=== PATIENT | male | born 1940 | race Caucasian/White ===

== ENCOUNTER 2016-12-23 11:28 | Observation (INO) | payer OTHER ==
[~2016-12-23] VITALS: Ht 175.3 cm; Wt 87.4 kg
[~2016-12-23 11:28] MED LIST: ASPI81TA28 PO; CYAN10005 PO; DOXY-300 PO; FERR325T51 PO; FOLI800T PO; FURO-85 PO; LEVO100T7 PO; LIDO2SOL17 PO; PRED10TA PO; SIMV10TA2 PO
--- NOTE | 2016-12-23 11:50 | EMERGENCY ROOM VISIT NOTE ---
History Report prepared by Sonali: Nellie Johnston Under the Supervision of: Dr. Alisia Lazaro M.D. First contact with patient: 11:14 Stated Complaint: CHEST PAIN History of Present Illness The patient is a 76 year old male who presents to the Emergency Room with complaints of resolved chest pain starting about an hour ago. He reports a sudden onset of severe pain. He also had heart palpitations, severe dizziness, weakness, and diaphoresis. He received Aspirin en route to the Emergency Room with relief. He currently reports worsening pain with palpation but otherwise denies any chest pain. He sometimes has chest pain when he does even a small amount of exertion. He has had cold-like symptoms for the past 3 days. He has been having chest pain with coughing. He also reports sinus pressure. He notes a loss of appetite and a reduced fluid intake. He currently denies shortness of breath, abdominal pain, or any other complaints. He denies any history of myocardial infarction. Source of History: patient Onset: about an hour ago Position: chest Symptom Intensity: severe Timing: resolved Modifying Factors (Worsening): other (palpation) Associated Symptoms: + diaphoresis, + weakness, No SOB, No abdominal pain Review of Systems See HPI for pertinent positives & negatives. A total of 10 systems reviewed and were otherwise negative. Past Medical & Surgical Medical Problems: (1) Aortic stenosis (2) Chest pain (3) CKD (chronic kidney disease) stage 3, GFR 30-59 ml/min (4) Dyslipidemia (5) HTN (hypertension) (6) Hx of malignant neoplasm of prostate (7) Hypothyroidism (8) Metastatic renal cell carcinoma (9) Renal cell carcinoma Surgical Problems: (1) H/O partial nephrectomy (2) H/O transurethral resection of prostate (3) History of nephrectomy Family History FH: cancer (father) Hypertension Social History Smoking Status: Never Smoker Alcohol Use: none Drug Use: none Marital Status: Housing Status: lives with family Occupation Status: retired Current/Historical Medications Scheduled Aspirin (Aspirin Ec), 81 MG PO DAILY Cyanocobalamin (Vitamin B-12), 1,000 MCG PO DAILY Ferrous Fumarate (Iron), 65 MG PO DAILY Folic Acid (Folic Acid), 800 MCG PO DAILY Furosemide (Lasix), 20 MG PO DAILY Levothyroxine Sodium (Levothyroxine Sodium), 100 MCG PO DAILY Prednisone Tab (Prednisone), 10 MG PO DAILY Simvastatin (Zocor), 10 MG PO QPM Sunitinib Malate (Sutent), 25 MG PO DAILY Allergies Coded Allergies: No Known Allergies (Unverified , 03/15/16) Physical Exam Vital Signs Date Time Temp Pulse Resp B/P Pulse Ox O2 Delivery O2 Flow Rate FiO2 12/23/16 14:22 37.0 89 14 116/82 95 Room Air 12/23/16 13:37 90 12/23/16 12:28 91 18 110/75 12/23/16 12:23 94 20 93 12/23/16 12:18 91 21 94 12/23/16 12:13 95 19 92 12/23/16 12:03 95 17 94 12/23/16 11:58 102 18 113/78 12/23/16 11:53 97 18 93 12/23/16 11:48 98 21 93 12/23/16 11:43 102 19 95 12/23/16 11:38 99 15 93 12/23/16 11:34 99 12/23/16 11:33 103 18 95 12/23/16 11:31 145/85 12/23/16 11:30 37.0 101 18 145/85 98 Room Air 12/23/16 11:30 96 Room Air 12/23/16 11:30 Room Air Physical Exam CONSTITUTIONAL: Mild distress HEENT: No icterus, moist mucous membranes NECK: No meningismus, trachea is midline. CARDIOVASCULAR: Regular rate, normal perfusion RESPIRATORY: Unlabored breathing. Clear to auscultation. GASTROINTESTINAL: Non-tender GENITOURINARY: No flank tenderness MUSCULOSKELETAL: Full range of motion NEUROLOGIC: No acute gross focal deficits. PSYCHIATRIC: Normal affect SKIN: Normal for ethnicity. Medical Decision & Procedures ER Provider Diagnostic Interpretation: X-ray results as stated below per interpretation by me and the radiologist. CHEST ONE VIEW PORTABLE CLINICAL HISTORY: Chest pain. COMPARISON STUDY: Chest radiograph May 20, 2016 per FINDINGS: Lung volumes are normal. There is no pneumothorax or pleural effusion. No consolidation is identified. There is no evidence of pulmonary edema. There is moderate enlargement of the cardiac silhouette. IMPRESSION: 1. No acute cardiopulmonary findings. 2. Moderate enlargement of the cardiac silhouette. Electronically signed by: Devin Crandall M.D. 12/23/2016 11:57 AM Dictated Date/Time: 12/23/2016 11:55 AM Laboratory Results 12/23/16 11:00 Red Blood Count 4.60, Mean Corpuscular Volume 96.3, Mean Corpuscular Hemoglobin 32.4, Mean Corpuscular Hemoglobin Concent 33.6, Mean Platelet Volume 8.9, Neutrophils (%) (Auto) 72.8, Lymphocytes (%) (Auto) 16.5, Monocytes (%) (Auto) 9.6, Eosinophils (%) (Auto) 0.5, Basophils (%) (Auto) 0.2, Neutrophils # (Auto) 9.94, Lymphocytes # (Auto) 2.25, Monocytes # (Auto) 1.31, Eosinophils # (Auto) 0.07, Basophils # (Auto) 0.03 12/23/16 11:04 Test 12/23/16 11:00 12/23/16 11:04 12/23/16 14:14 White Blood Count 13.66 K/uL (4.8-10.8) Red Blood Count 4.60 M/uL (4.7-6.1) Hemoglobin 14.9 g/dL (14.0-18.0) Hematocrit 44.3 % (42-52) Mean Corpuscular Volume 96.3 fL (80-100) Mean Corpuscular Hemoglobin 32.4 pg (25-34) Mean Corpuscular Hemoglobin Concent 33.6 g/dl (32-36) Platelet Count 233 K/uL (130-400) Mean Platelet Volume 8.9 fL (7.4-10.4) Neutrophils (%) (Auto) 72.8 % Lymphocytes (%) (Auto) 16.5 % Monocytes (%) (Auto) 9.6 % Eosinophils (%) (Auto) 0.5 % Basophils (%) (Auto) 0.2 % Neutrophils # (Auto) 9.94 K/uL (1.4-6.5) Lymphocytes # (Auto) 2.25 K/uL (1.2-3.4) Monocytes # (Auto) 1.31 K/uL (0.11-0.59) Eosinophils # (Auto) 0.07 K/uL (0-0.5) Basophils # (Auto) 0.03 K/uL (0-0.2) RDW Standard Deviation 61.0 fL (36.4-46.3) RDW Coefficient of Variation 17.2 % (11.5-14.5) Immature Granulocyte % (Auto) 0.4 % Immature Granulocyte # (Auto) 0.06 K/uL (0.00-0.02) Prothrombin Time 10.0 SECONDS (9.0-12.0) Prothromb Time International Ratio 0.9 (0.9-1.1) Activated Partial Thromboplast Time 24.8 SECONDS (21.0-31.0) Partial Thromboplastin Ratio 1.0 Anion Gap 14.0 mmol/L (3-11) Est Creatinine Clear Calc Drug Dose 33.6 ml/min Estimated GFR () 36.0 Estimated GFR (Non- 31.0 BUN/Creatinine Ratio 11.3 (10-20) Calcium Level 9.4 mg/dl (8.5-10.1) Total Bilirubin 1.0 mg/dl (0.2-1) Aspartate Amino Transf (AST/SGOT) 22 U/L (15-37) Alanine Aminotransferase (ALT/SGPT) 24 U/L (12-78) Alkaline Phosphatase 73 U/L (45-117) Total Protein 6.9 gm/dl (6.4-8.2) Albumin 3.4 gm/dl (3.4-5.0) Globulin 3.5 gm/dl (2.5-4.0) Albumin/Globulin Ratio 1.0 (0.9-2) Chemistry Specimen Hemolysis Bedside Troponin I 0.020 ng/ml (0-0.045) Labs reviewed by ED physician. ECG Indication: chest pain Rate (beats per minute): 93 Rhythm: normal sinus Findings: no ectopy, other (Concerning for possible STEMI) Comparison ECG Date: May 22, 2016 Change: In-hospital EKG showed improving ST segments with prominent T waves noted. Compared to previous en route EKG. ED Course 1110: I discussed the patient's case with Dr. Song, outboard motor inspector with [facility]. 1114: Past medical records reviewed. The patient was evaluated in room B01. A complete history and physical examination was performed. 1129: Dr. Song is evaluating the patient at bedside. 1336: Upon reexamination the patient is resting comfortably. I discussed results and treatment plan with the patient. He verbalizes agreement and understanding. I spoke with Razia Robb PA-C from the [facility] Service. The patient will be evaluated for further management. Medical Decision Differential diagnosis includes but is not limited to aortic stenosis, coronary artery disease including ACS. I received medic call on this patient for Chief Complaint: Chest pain with EKG concerning for STEMI. h/o aortic stenosis. ROS (+) dizziness and weakness this morning. All chest pain and dizziness has resolved. Previous EKG obtained prior to patient's arrival and Dr. Song (interventional cardiology) kindly came to see patient on ED arrival. Repeat EKG demonstrated some improvement in St-t segments compared to May 2016 and patient remained asymptomatic with normal poc troponin. Second troponin also normal and patient remained hemodynamically stable throughout ED course. Admission arranged with [facility]. Consults Time Called: [id number] Consulting Physician: Dr. Song, outboard motor inspector with [facility] Returned Call: [phone] I discussed the patient's case with Dr. Song, outboard motor inspector with [facility]. Additional Consults: Time Called: 1334 Consulted Physician: Razia Robb PA-C from the [facility] Service Returned Call: [phone] Additional Comments: I spoke with Razia Robb PA-C from the [facility]. Impression Primary Impression: Precordial chest pain Critical Care I have personally spent greater than 30 minutes of critical care time in the direct management of this patient. This includes bedside care, interpretation of diagnostic studies, and testing, discussion with consultants, patient, and family members, and other required patient management activities. This 30 minutes is in excess of all separately billable procedures. Scribe Attestation The scribe's documentation has been prepared under my direction and personally reviewed by me in its entirety. I confirm that the note above accurately reflects all work, treatment, procedures, and medical decision making performed by me. Departure Information Dispostion Being Evaluated By Hospitalist Referrals Jay Muhammad D.O. (PCP)
[2016-12-23] MEDS ORDERED: PRED10TA PO (11:52)
[2016-12-23] MEDS ORDERED: SUNI25CA PO (11:52)
[2016-12-23] MEDS ORDERED: FERR18TA2 PO (11:52)
[2016-12-23 11:54] LABS: BASO % 0.2 %; BASO ABS # 0.03 K/uL (0-0.2); COMPLETE YES; EOS % 0.5 %; HEMATOCRIT 44.3 % (42-52); IG% 0.4 %; LYMPH % 16.5 %; LYMPH ABS # 2.25 K/uL (1.2-3.4); MEAN CELL VOLUME 96.3 fL (80-100); MEAN CORPUSCULAR HEMOGLOBIN 32.4 pg (25-34); MEAN CORPUSCULAR HGB CONC 33.6 g/dl (32-36); MEAN PLATELET VOLUME 8.9 fL (7.4-10.4); MONO % 9.6 %; NEUT % 72.8 %; PLATELET COUNT 233 K/uL (130-400); WHITE BLOOD COUNT 13.66 K/uL (4.8-10.8)
--- NOTE | 2016-12-23 11:58 | DIAGNOSTIC IMAGING REPORT ---
CHEST ONE VIEW PORTABLE CLINICAL HISTORY: Chest pain. COMPARISON STUDY: Chest radiograph May 20, 2016 per FINDINGS: Lung volumes are normal. There is no pneumothorax or pleural effusion. No consolidation is identified. There is no evidence of pulmonary edema. There is moderate enlargement of the cardiac silhouette. IMPRESSION: 1. No acute cardiopulmonary findings. 2. Moderate enlargement of the cardiac silhouette. Electronically signed by: Devin Crandall M.D. 12/23/2016 11:57 AM Dictated Date/Time: 12/23/2016 11:55 AM
[2016-12-23 12:09] LABS: INR 0.9 (0.9-1.1)
[2016-12-23 12:16] LABS: BUN/CREATININE RATIO 11.3 (10-20); CALCIUM 9.4 mg/dl (8.5-10.1); POTASSIUM 3.7 mmol/L (3.5-5.1)
[2016-12-23] MEDS ORDERED: ONDANSETRON INJ 2 MG/ML 2 ML VIAL IV PRN (14:15)
[2016-12-23] MEDS ORDERED: ACETAMINOPHEN 325 MG TAB PO PRN (14:15)
[2016-12-23] MEDS ORDERED: NITROGLYCERIN 0.4 MG SL PER TAB CHARGE SL PRN (14:15)
[2016-12-23 14:22] VITALS: BP 116/82; PULSE 89; TEMP 37; O2SAT 95; Ht 175.3 cm; Wt 87.4 kg
--- NOTE | 2016-12-23 14:36 | History and Physical ---
History & Physical Date & Time of Service: Dec 23, 2016 at 14:17 Chief Complaint: Chest Pain Primary Care Physician: Polina Aguilera D.O. History of Present Illness Source: patient, family, clinic records, hospital records Patient seen and examined. 76 year old male with PMHx of Severe Aortic Stenosis , CKD stage 3, Renal CA with mets to brain, adrenal glands and lungs, HTN, and hypothyroidism presents to the ED complaining of epigastric pain prior to arrival. Patient reports that he has had sinus congestion for several days. Today he took robitussin DM to help with the congestion he states about an hour after he took this he became extremely dizzy and lightheaded. Family reports he was very pale and diaphoretic. He had associated sharp epigastric abdominal pain that he rated as a 6/10, he states the pain is more epigastric than in his chest, but has had chest pain with exertional recently. Patient reports that he also felt like his heart was fluttering and beating irregularly. He also reports diarrhea x 2 episodes. He states that the total episode lasted around 45 minutes, and was resolved by the time he arrived at the ED. He states he currently feels at baseline. Patient reports that occasionally gets a chest tightness when carrying heavy objects, like the groceries from the car to the house. He denies fevers, chills, cough, SOB, nausea, vomiting, dysuria, calf pain and edema. Enroute to the hospital there was question of whether EKG showed ST segment elevation, on arrival, repeat EKG was without ST elevation, troponin was negative and patient was symptom free. Dr. Song of interventional cardiology was consulted and did not think patient needed emergency cath. Patient will be observed for further workup and treatment. Past Medical/Surgical History Medical Problems: (1) Aortic stenosis Status: Chronic (2) Brain metastasis Permanent Comment: s/p resection Status: Chronic (3) CKD (chronic kidney disease) stage 3, GFR 30-59 ml/min Status: Chronic (4) Dyslipidemia Status: Chronic (5) History of left heart catheterization (LHC) Permanent Comment: Diagnostic cardiac catheterization done March 2016 demonstrated mild coronary irregularities with no obstructive disease. Status: Chronic (6) HTN (hypertension) Status: Chronic (7) Hx of malignant neoplasm of prostate Status: Chronic (8) Hypothyroidism Status: Chronic (9) Metastatic renal cell carcinoma Permanent Comment: DIAGNOSIS: Metastatic renal cell carcinoma to the left parietal lobe status post resection Status post completion of radiation therapy 04/30/2016 received 2400 cGy Status: Chronic Surgical Problems: (1) H/O partial nephrectomy Status: Chronic (2) H/O transurethral resection of prostate Status: Resolved (3) History of nephrectomy Permanent Comment: Peña Perera MD 07/20/2013 Status: Resolved Family History FH: cancer (father) Hypertension Social History Smoking Status: Never Smoker Alcohol Use: none Drug Use: none Marital Status: Occupational Status: retired Allergies Coded Allergies: No Known Allergies (Unverified , 03/15/16) Home Medications Scheduled Aspirin (Aspirin Ec), 81 MG PO DAILY Cyanocobalamin (Vitamin B-12), 1,000 MCG PO DAILY Ferrous Fumarate (Iron), 65 MG PO DAILY Folic Acid (Folic Acid), 800 MCG PO DAILY Furosemide (Lasix), 20 MG PO DAILY Levothyroxine Sodium (Levothyroxine Sodium), 100 MCG PO DAILY Prednisone Tab (Prednisone), 10 MG PO DAILY Simvastatin (Zocor), 10 MG PO QPM Sunitinib Malate (Sutent), 25 MG PO DAILY Review of Systems See above for pertinent positives & negatives. A total of 10 systems reviewed and were otherwise negative. Physical Exam Vital Signs Date Time Temp Pulse Resp B/P Pulse Ox O2 Delivery O2 Flow Rate FiO2 12/23/16 13:37 90 12/23/16 12:28 91 18 110/75 12/23/16 12:23 94 20 93 12/23/16 12:18 91 21 94 12/23/16 12:13 95 19 92 12/23/16 12:03 95 17 94 12/23/16 11:58 102 18 113/78 12/23/16 11:53 97 18 93 12/23/16 11:48 98 21 93 12/23/16 11:43 102 19 95 12/23/16 11:38 99 15 93 12/23/16 11:34 99 12/23/16 11:33 103 18 95 12/23/16 11:31 145/85 12/23/16 11:30 37.0 101 18 145/85 98 Room Air 12/23/16 11:30 96 Room Air 12/23/16 11:30 Room Air General Appearance: + pertinent finding (Very pleasant WD/WN 76 year old male lying in bed in NAD with family at bedside ) Head: normocephalic, atraumatic Eyes: PERRL, EOMI, sclerae normal ENT: hearing grossly normal, pharynx normal Neck: supple, no JVD Respiratory/Chest: chest non-tender, lungs clear, normal breath sounds, no respiratory distress, no accessory muscle use Cardiovascular: regular rate, rhythm, no edema, no gallop, no JVD, normal peripheral pulses, + systolic murmur Abdomen/GI: normal bowel sounds, non tender, soft, no organomegaly Back: normal inspection, no muscle spasm Extremities/Musculoskelatal: no calf tenderness, normal capillary refill, no pedal edema Neurologic/Psych: alert, oriented x 3, + pertinent finding (no motor or sensory deficits noted on gross exam ) Skin: normal color, warm/dry, no rash Lymphatic: no adenopathy Diagnostics Laboratory Results Results Past 24 Hours Test 12/23/16 11:00 12/23/16 11:04 12/23/16 11:49 Range/Units White Blood Count 13.66 4.8-10.8 K/uL Red Blood Count 4.60 4.7-6.1 M/uL Hemoglobin 14.9 14.0-18.0 g/dL Hematocrit 44.3 42-52 % Mean Corpuscular Volume 96.3 80-100 fL Mean Corpuscular Hemoglobin 32.4 25-34 pg Mean Corpuscular Hemoglobin Concent 33.6 32-36 g/dl Platelet Count 233 130-400 K/uL Mean Platelet Volume 8.9 7.4-10.4 fL Neutrophils (%) (Auto) 72.8 % Lymphocytes (%) (Auto) 16.5 % Monocytes (%) (Auto) 9.6 % Eosinophils (%) (Auto) 0.5 % Basophils (%) (Auto) 0.2 % Neutrophils # (Auto) 9.94 1.4-6.5 K/uL Lymphocytes # (Auto) 2.25 1.2-3.4 K/uL Monocytes # (Auto) 1.31 0.11-0.59 K/uL Eosinophils # (Auto) 0.07 0-0.5 K/uL Basophils # (Auto) 0.03 0-0.2 K/uL RDW Standard Deviation 61.0 36.4-46.3 fL RDW Coefficient of Variation 17.2 11.5-14.5 % Immature Granulocyte % (Auto) 0.4 % Immature Granulocyte # (Auto) 0.06 0.00-0.02 K/uL Prothrombin Time 10.0 9.0-12.0 SECONDS Prothromb Time International Ratio 0.9 0.9-1.1 Activated Partial Thromboplast Time 24.8 21.0-31.0 SECONDS Partial Thromboplastin Ratio 1.0 Sodium Level 142 136-145 mmol/L Potassium Level 3.7 3.5-5.1 mmol/L Chloride Level 105 98-107 mmol/L Carbon Dioxide Level 23 21-32 mmol/L Anion Gap 14.0 3-11 mmol/L Blood Urea Nitrogen 23 7-18 mg/dl Creatinine 2.00 0.60-1.40 mg/dl Est Creatinine Clear Calc Drug Dose 33.6 ml/min Estimated GFR () 36.0 Estimated GFR (Non- 31.0 BUN/Creatinine Ratio 11.3 10-20 Random Glucose 120 70-99 mg/dl Calcium Level 9.4 8.5-10.1 mg/dl Total Bilirubin 1.0 0.2-1 mg/dl Aspartate Amino Transf (AST/SGOT) 22 15-37 U/L Alanine Aminotransferase (ALT/SGPT) 24 12-78 U/L Alkaline Phosphatase 73 45-117 U/L Troponin I 0.020 0-0.045 ng/ml Total Protein 6.9 6.4-8.2 gm/dl Albumin 3.4 3.4-5.0 gm/dl Globulin 3.5 2.5-4.0 gm/dl Albumin/Globulin Ratio 1.0 0.9-2 Chemistry Specimen Hemolysis Bedside Troponin I 0.030 0-0.045 ng/ml Diagnostic Radiology CXR Per radiologist read: IMPRESSION: 1. No acute cardiopulmonary findings. 2. Moderate enlargement of the cardiac silhouette. EKG 100 BPM, Sinus Tachycardia left anterior fascicular block, LVH, QTc 472 Impression Assessment and Plan 76 year old male presents to the ED after experiencing symptoms of epigastric pain, dizziness, diaphoresis, and palpitations, following taking Robitussin. CHEST PAIN/EPIGASTRIC PAIN R/O ACS -Observation in tele -First set of Tony negative in ED, currently asymptomatic -Risk factors: HTN, Aortic Stenosis, Age -Had LHC in March 2016 with mild coronary irregularities, no obstructive disease -Serial Tony and EKGs -Fasting lipid panel in AM -Echo pending to r/o heart wall abnormality - last echo with severe , preserved EF -Monitor in tele to r/o arrhythmia -check Lipase to r/o pancreatitis -Possibly related to Robitussin DM use - many of patient's symptoms on side effect list of this mediation -ASA daily -Nitro, prn chest pain -Was seen by interventional cardiology in ED - no emergent intervention necessary - will consult primary cardiology for further input -AHA diet -CBC, PRP, Mg daily -VSS stable, monitor in tele CKD STAGE 3 -crea 2, baseline closer to 1.5 -will hold Lasix -will not give IVFs at this time d/t severe aortic stenosis -follow PRP daily RENAL CELL CA WITH METS -s/p partial nephrectomy, s/p cranial partial hemispherectomy -currently on Sutent chemotherapy -follows with Dr. Kendall ADRENAL INSUFFICIENCY -continue Prednisone HYPOTHYROIDISM -continue Synthroid HTN -stable -monitor -lasix on hold SEVERE AORTIC STENOSIS -will hold Lasix for now for crea bump -will not give IVFs as patient appears euvolemic CODE STATUS: FULL CODE per my discussion with the patient DVT PROPHYLAXIS: SCDs RE: brain mets DISPO:observation pending further workup Discharge planning eval Patient seen in collaboration with Dr. Garcia Attending Note: Patient is a 76 yr old male with PMH of Severe , CKD III, Metastatic renal cell cancer and other comorbidities presents with history of sharp epigastric abdominal pain. Also stated to have lightheadedness, diaphoresis, palpitations, diarrhea this morning. EKG and Troponin were negative for signs of ACS. Currently he is asymptomatic at the time of admission. Physical Exam: Vitals signs as noted above General Appearance:Moderately built and nourished, no apparent distress Head: normocephalic, Atraumatic Eyes: normal inspection, EOMI, PERRLA Neck: supple, no JVD, Trachea midline Respiratory/Chest: Normal breath sounds, CTA, No accessory muscle use Cardiovascular: S1, S2, NSR, + systolic murmur Abdomen/GI:Soft, Non tender, Bowel sounds present Extremities/Musculoskelatal:normal inspection, no calf tenderness, edema Neurologic/Psych:AAOX3, grossly no focal neurological deficits Skin:normal color,warm Assessment and Plan: Chest/Epigastric pain: ? Gastroenteritis Chest Pain: R/O ACS Risk factors: HTN, Aortic Stenosis, CKD Initial troponin:Negative EKG: No ST-T wave changes concerning for ischemia CXR: Unremarkable Last cath in March 2016:Non obstructive coronary artery disease Trend serial cardiac enzymes, repeat EKG, fasting lipid panel in AM Continue Aspirin, statins Oxygen PRN Cardiology consult Will get stool studies if diarrhea persists. I personally reviewed the record. Patient is interviewed and examined at bedside. Patient's care is coordinated with Razia Robb PA-C. Please refer to the documentation above for details of patient's presentation and for discussion of other issues. VTE Prophylaxis VTE Risk Assessment Done? Y/N: Yes Risk Level: Moderate
[2016-12-23] MEDS ORDERED: IV FLUIDS COMPLETED PRN (15:00)
--- NOTE | 2016-12-23 19:29 | CARDIOLOGY CONSULTATION ---
DATE OF CONSULTATION: 12/23/2016 REFERRING PHYSICIAN: Jn Garcia MD REASON FOR CONSULTATION: Chest pain, aortic stenosis. CHIEF COMPLAINT ON ADMISSION: Epigastric pain, dizziness. HISTORY OF PRESENT ILLNESS: Mr. Bond is a 76-year-old patient with a history of severe aortic stenosis, chronic kidney disease stage III, renal cancer with metastatic disease, hypertension, hypothyroidism. He developed acute onset of epigastric pain earlier today which prompted a call to EMS, subsequently brought to the Emergency Room. There was a concern initially about ST elevation. He was evaluated by interventional cardiology who determined that patient was not suffering an acute infarction. The patient's symptoms began approximately 3 days ago. Noted nausea without vomiting, prompted multiple bouts of diarrhea. He has been unable to tolerate solid food for approximately 3 days. His creatinine is elevated on admission. He took some Robitussin today on an empty stomach. Immediately after taking this medication, he became dizzy and nauseated. His epigastric pain ensued. Pain relieved during EMS transport. He was given 4 baby aspirins. He is currently pain free. His daughter is present at bedside. She offers no other concerns at this time. REVIEW OF SYSTEMS: The pertinent positive noted above, a comprehensive 10-system review is otherwise negative. PAST MEDICAL HISTORY: 1. Severe aortic stenosis. 2. Metastatic renal cancer. 3. Hypothyroidism. 4. Dyslipidemia. PAST SURGICAL HISTORY: 1. Prostatectomy. 2. Partial nephrectomy. 3. CT guided biopsy. 4. Coronary angiography 03/07/2016 revealing mild luminal irregularities. 5. Removal of cerebral/parietal, renal carcinoma metastases. FAMILY HISTORY: Negative for premature coronary artery disease or sudden cardiac . SOCIAL HISTORY: The patient is a nonsmoker, nondrinker. 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 ALLERGIES: No known drug allergies. OUTPATIENT MEDICATIONS: 1. Synthroid 100 mcg daily. 2. Zocor 10 mg daily. 3. Lasix 20 mg daily. 4. Prednisone 10 mg daily. 5. Vitamin B12 1000 mcg daily. 6. Aspirin 81 mg daily. 7. Iron 325 mg daily. 8. Folic acid 800 mcg daily. Chest x-ray on admission: No acute cardiopulmonary findings. ECG ON ADMISSION: Normal sinus rhythm, left ventricular hypertrophy with secondary QRS widening and repolarization abnormality, left anterior fascicular block, stable unchanged when compared to prior tracings. LABORATORY DATA: Troponins are negative x3 sets. White blood cell count 13.66, hemoglobin is 14.9, platelet count is 233. INR 0.9. Sodium 142, potassium 3.7, chloride 105, CO2 is 23, BUN is 23, creatinine is 2.00 which is up from baseline of 1.20. PHYSICAL EXAMINATION: VITAL SIGNS: Temperature is 37 degrees centigrade, pulse 88 beats per minute and regular, respiratory rate is 18 breaths per minute, blood pressure 130/83, SaO2 is 96% on room air. GENERAL: NAD, awake, alert and oriented x3. HEENT: Mucous membranes are dry. No scleral icterus. The conjunctivae are pink. NECK: Supple. There is no JVD or HJR. No carotid bruit. HEART: Regular with a normal S1 and S2. There is no murmur, rub, or gallop. LUNGS: Clear without rales, rhonchi or wheeze. ABDOMEN: Soft, nontender. No rebound or guarding. Normal bowel sounds. EXTREMITIES: Warm and dry without clubbing, cyanosis, or edema. NEUROLOGIC: Demonstrates no focal deficit. FINAL IMPRESSION: 1. A 76-year-old male admitted with acute epigastric discomfort. I suspect it is related to viral gastroenteritis, which has been present over the past 3 days. 2. Severe aortic stenosis with chronic stable class 2 symptoms. 3. Acute renal insufficiency superimposed on chronic kidney disease secondary to dehydration in the setting of gastroenteritis. 4. Renal cell carcinoma with metastatic disease. 5. Hypothyroidism. 6. Hypertension -- controlled. PLAN AND RECOMMENDATIONS: Furosemide will be placed on hold at this time. I have encouraged oral hydration. If intravenous hydration is ordered by the primary team, we would recommend low infusion rate with history of severe aortic stenosis. Repeat basic metabolic panel will be performed in the a.m. There is no evidence of acute coronary syndrome at this time. Recent cardiac catheterization performed in March demonstrated mild nonobstructive CAD. No further cardiac testing at this time. Thank you for allowing me to take part in the care of your patient.
[2016-12-23 20:00] VITALS: O2SAT 96
[2016-12-23 20:09] VITALS: BP 136/86; PULSE 90; TEMP 36.8; O2SAT 91
[2016-12-23] MEDS ORDERED: SIMVASTATIN 10 MG TAB PO SCH (21:00)
[2016-12-23 23:19] VITALS: BP 149/72; PULSE 89; TEMP 37; O2SAT 92
[2016-12-24 04:33] VITALS: BP 144/81; PULSE 90; TEMP 36.8; O2SAT 93
[2016-12-24 06:21] LABS: HEMATOCRIT 41.3 % (42-52); MEAN CELL VOLUME 95.8 fL (80-100); MEAN CORPUSCULAR HEMOGLOBIN 32.3 pg (25-34); MEAN CORPUSCULAR HGB CONC 33.7 g/dl (32-36); MEAN PLATELET VOLUME 8.3 fL (7.4-10.4); PLATELET COUNT 212 K/uL (130-400); RED BLOOD COUNT 4.31 M/uL (4.7-6.1)
[2016-12-24] MEDS ORDERED: LEVOTHYROXINE 100 MCG TAB PO SCH (06:30)
[2016-12-24 06:52] LABS: BUN/CREATININE RATIO 13.5 (10-20); CALCIUM 8.6 mg/dl (8.5-10.1); CREATININE 1.7 mg/dl (0.60-1.40); MAGNESIUM 2.4 mg/dl (1.8-2.4); POTASSIUM 3.7 mmol/L (3.5-5.1)
[2016-12-24 07:46] VITALS: BP 145/81; PULSE 88; TEMP 36.9; O2SAT 93
[2016-12-24] MEDS ORDERED: FoLIC ACID TAB 400 MCG TAB PO SCH (09:00)
[2016-12-24] MEDS ORDERED: CYANOCOBALAMIN 500 MCG TAB (VIT B-12) PO SCH (09:00)
[2016-12-24] MEDS ORDERED: ASPIRIN 81 MG ECTAB PO SCH (09:00)
[2016-12-24] MEDS ORDERED: PERFLUTREN LIPID MICROSPHERE (DEFINITY) IV ONE (11:00)
[2016-12-24 12:03] VITALS: BP 119/82; PULSE 105; TEMP 36.7; O2SAT 94
--- NOTE | 2016-12-24 12:26 | Progress Note ---
Internal Med Progress Note Date of Service: Dec 24, 2016. Provider Documentation: SUBJECTIVE: Patient is sitting in his bed in no apparent distress. Remains chest pain/ pressure free. Again tells me that his primary pain was in the epigastric area and it started after he took Robitussin. No SOB/ palpitations or dizziness. Has been able to walk in the hallway without any new symptoms. OBJECTIVE: Vital Signs-as noted below Examination: General Appearance: Very pleasant WD/WN 76 year old male lying in bed in no apparent distress. Head: normocephalic, atraumatic Eyes: PERRL, EOMI, sclerae normal ENT: hearing grossly normal, pharynx normal Neck: supple, no JVD Respiratory/Chest: chest non-tender, lungs clear, normal breath sounds, no respiratory distress, no accessory muscle use Cardiovascular: regular rate, rhythm, no edema, no gallop, no JVD, normal peripheral pulses, + systolic murmur Abdomen/GI: normal bowel sounds, non tender, soft, no organomegaly Back: normal inspection, no muscle spasm Extremities/Musculoskeletal: no calf tenderness, normal capillary refill, no pedal edema Neurologic/Psych: alert, oriented x 3, No motor or sensory deficits noted on gross exam. Skin: normal color, warm/dry, no rash Lymphatic: no adenopathy Lab data as noted below. ASSESSMENT & PLAN: Chest Pain/Epigastric Pain/ R/O ACS: Clinically & hemodynamically doing very well. -Serial Troponin are negative. -Risk factors: HTN, Aortic Stenosis, Age -Had LHC in March 2016 with mild coronary irregularities, no obstructive disease -Fasting lipid panel in AM shows HDL 45 & LDL 106. -Possibly related to Robitussin DM use - many of patient's symptoms on side effect list of this mediation -Continue ASA daily -Was seen by interventional cardiology in ED - no emergent intervention necessary - will consult primary cardiology for further input -AHA diet History HTN: BP has been stable. -lasix on hold CKD Stage III: Gradually improving. Baseline Cr is closer to 1.5 -Holding Lasix & will be started after seeing PCP. Severe Aortic Stenosis: Holding Lasix for now for creatinine increase above baseline. Adrenal Insufficiency: Continue Prednisone History Renal Cell Ca With mets: s/p partial nephrectomy, s/p cranial partial hemispherectomy -Currently on Sutent chemotherapy -Follows with Dr. Kendall Hypothyroidism: Continue Synthroid CODE STATUS: FULL CODE per discussion with the patient DVT PROPHYLAXIS: SCDs RE: brain mets Disposition: Patient is being discharged home later today. Follow up with PCP Dr. Aguilera on 12/26/2016 @ 1.30 PM. Vital Signs: Date Time Temp Pulse Resp B/P Pulse Ox O2 Delivery O2 Flow Rate FiO2 12/24/16 12:03 36.7 105 16 119/82 94 Room Air 12/24/16 07:46 36.9 88 16 145/81 93 Room Air 12/24/16 07:45 Room Air 12/24/16 04:33 36.8 90 20 144/81 93 Room Air 12/24/16 04:00 Room Air 12/23/16 23:59 Room Air 12/23/16 23:19 37.0 89 20 149/72 92 Room Air 12/23/16 20:09 36.8 90 20 136/86 91 Room Air 12/23/16 20:00 96 Room Air 12/23/16 16:18 88 18 130/83 96 12/23/16 14:33 84 17 93 12/23/16 14:22 37.0 89 14 116/82 95 Room Air 12/23/16 14:03 88 14 93 12/23/16 13:58 116/82 12/23/16 13:37 90 12/23/16 13:33 88 18 93 12/23/16 13:28 126/58 12/23/16 13:03 91 19 91 12/23/16 12:59 96/63 Lab Results: Results Past 24 Hours Test 12/23/16 14:14 12/23/16 14:30 12/23/16 17:50 12/24/16 00:52 Range/Units Bedside Troponin I 0.020 0-0.045 ng/ml Troponin I 0.018 < 0.015 0.022 0-0.045 ng/ml Total Creatine Kinase 32 34 39-308 U/L Creatine Kinase MB < 0.5 < 0.5 0.5-3.6 ng/ml Creatine Kinase MB Ratio 0-3.0 Test 12/24/16 05:50 Range/Units White Blood Count 8.40 4.8-10.8 K/uL Red Blood Count 4.31 4.7-6.1 M/uL Hemoglobin 13.9 14.0-18.0 g/dL Hematocrit 41.3 42-52 % Mean Corpuscular Volume 95.8 80-100 fL Mean Corpuscular Hemoglobin 32.3 25-34 pg Mean Corpuscular Hemoglobin Concent 33.7 32-36 g/dl RDW Standard Deviation 60.1 36.4-46.3 fL RDW Coefficient of Variation 17.0 11.5-14.5 % Platelet Count 212 130-400 K/uL Mean Platelet Volume 8.3 7.4-10.4 fL Sodium Level 141 136-145 mmol/L Potassium Level 3.7 3.5-5.1 mmol/L Chloride Level 102 98-107 mmol/L Carbon Dioxide Level 29 21-32 mmol/L Anion Gap 10.0 3-11 mmol/L Blood Urea Nitrogen 23 7-18 mg/dl Creatinine 1.70 0.60-1.40 mg/dl Est Creatinine Clear Calc Drug Dose 39.5 ml/min Estimated GFR () 43.8 Estimated GFR (Non- 37.8 BUN/Creatinine Ratio 13.5 10-20 Random Glucose 89 70-99 mg/dl Calcium Level 8.6 8.5-10.1 mg/dl Magnesium Level 2.4 1.8-2.4 mg/dl Triglycerides Level 146 0-150 mg/dl Cholesterol Level 180 0-200 mg/dl HDL Cholesterol 45 mg/dl LDL Cholesterol, Calculated 106 mg/dl VLDL Cholesterol, Calculated 29 mg/dl Cholesterol/HDL Ratio 4.0
--- NOTE | 2016-12-24 12:42 | Discharge Summary ---
Discharge Summary Admission Date: Dec 23, 2016 at 14:12 Discharge Date: Dec 24, 2016 Discharge Disposition: Home Principal Diagnosis: Chest Pain (Non-cardiac) Secondary Diagnoses/Problems: CKD Stage III Hypertension Severe Aortic Stenosis Renal Cell Ca with Mets. Adrenal Insufficiency Hypothyroidism Procedures: NONE Vaccinations: NONE Consultations: Cardiology Medication Reconciliation Continued Medications: Aspirin (Aspirin Ec) 81 Mg Tab 81 MG PO DAILY Cyanocobalamin (Vitamin B-12) 1,000 Mcg Tab 1000 MCG PO DAILY, TAB Ferrous Fumarate (Iron) 18 Mg Tab 65 MG PO DAILY Folic Acid (Folic Acid) 800 Mcg Tab 800 MCG PO DAILY Furosemide (Lasix) 20 Mg Tab 20 MG PO DAILY, TAB Levothyroxine Sodium (Levothyroxine Sodium) 100 Mcg Tab 100 MCG PO DAILY for 90 Days, #90 TAB 3 Refills Prednisone Tab (Prednisone) 10 Mg Tab 10 MG PO DAILY, TAB Simvastatin (Zocor) 10 Mg Tab 10 MG PO QPM, TAB Sunitinib Malate (Sutent) 25 Mg Cap 25 MG PO DAILY Admission Information HPI (per Admitting provider): Patient seen and examined. 76 year old male with PMHx of Severe Aortic Stenosis , CKD stage 3, Renal CA with mets to brain, adrenal glands and lungs, HTN, and hypothyroidism presents to the ED complaining of epigastric pain prior to arrival. Patient reports that he has had sinus congestion for several days. Today he took robitussin DM to help with the congestion he states about an hour after he took this he became extremely dizzy and lightheaded. Family reports he was very pale and diaphoretic. He had associated sharp epigastric abdominal pain that he rated as a 6/10, he states the pain is more epigastric than in his chest, but has had chest pain with exertional recently. Patient reports that he also felt like his heart was fluttering and beating irregularly. He also reports diarrhea x 2 episodes. He states that the total episode lasted around 45 minutes, and was resolved by the time he arrived at the ED. He states he currently feels at baseline. Patient reports that occasionally gets a chest tightness when carrying heavy objects, like the groceries from the car to the house. He denies fevers, chills, cough, SOB, nausea, vomiting, dysuria, calf pain and edema. Enroute to the hospital there was question of whether EKG showed ST segment elevation, on arrival, repeat EKG was without ST elevation, troponin was negative and patient was symptom free. Dr. Song of interventional cardiology was consulted and did not think patient needed emergency cath. Patient will be observed for further workup and treatment. Physical Exam (per Admitting): General Appearance: + pertinent finding (Very pleasant WD/WN 76 year old male lying in bed in NAD with family at bedside ) Head: normocephalic, atraumatic Eyes: PERRL, EOMI, sclerae normal ENT: hearing grossly normal, pharynx normal Neck: supple, no JVD Respiratory/Chest: chest non-tender, lungs clear, normal breath sounds, no respiratory distress, no accessory muscle use Cardiovascular: regular rate, rhythm, no edema, no gallop, no JVD, normal peripheral pulses, + systolic murmur Abdomen/GI: normal bowel sounds, non tender, soft, no organomegaly Back: normal inspection, no muscle spasm Extremities/Musculoskelatal: no calf tenderness, normal capillary refill, no pedal edema Neurologic/Psych: alert, oriented x 3, + pertinent finding (no motor or sensory deficits noted on gross exam ) Skin: normal color, warm/dry, no rash Lymphatic: no adenopathy Hospital Course Chest Pain/Epigastric Pain/ R/O ACS: Clinically & hemodynamically doing very well. -Serial Troponin are negative. -Risk factors: HTN, Aortic Stenosis, Age -Had LHC in March 2016 with mild coronary irregularities, no obstructive disease -Fasting lipid panel in AM shows HDL 45 & LDL 106. -Possibly related to Robitussin DM use - many of patient's symptoms on side effect list of this mediation -Continue ASA daily -Was seen by interventional cardiology in ED - no emergent intervention necessary - will consult primary cardiology for further input -AHA diet History HTN: BP has been stable. -lasix on hold CKD Stage III: Gradually improving. Baseline Cr is closer to 1.5 -Holding Lasix & will be started after seeing PCP. Severe Aortic Stenosis: Holding Lasix for now for creatinine increase above baseline. Adrenal Insufficiency: Continue Prednisone History Renal Cell Ca With mets: s/p partial nephrectomy, s/p cranial partial hemispherectomy -Currently on Sutent chemotherapy -Follows with Dr. Kendall Hypothyroidism: Continue Synthroid CODE STATUS: FULL CODE per discussion with the patient DVT PROPHYLAXIS: SCDs RE: brain mets Disposition: Patient is being discharged home later today. Follow up with PCP Dr. Aguilera on 12/26/2016 @ 1.30 PM. Total time spent on discharge = 40 minutes,. This includes examination of the patient, discharge planning, medication reconciliation, and communication with other providers. Discharge Instructions Activity Recommendations Activity Limitations: resume your previous activity Exercise/Sports Limitations: as tolerated May Resume Sexual Activity: after follow-up appointment Shower/Bathe: tomorrow Driving or Machine Use: resume 1 day after discharge Weightbearing Status: Left weightbearing . Instructions / Follow-Up Instructions / Follow-Up 1. Follow up with Dr. Aguilera on 12/26/2016 @ 1.30 PM 2. Discuss with PCP regarding re-starting Lasix and discuss if dose needs to be lowered. Current Hospital Diet Patient's current hospital diet: AHA Diet (Heart Healthy), Renal Diet Drink adequate amounts of fluids. Discharge Diet Recommended Diet: AHA Diet (Heart Healthy) Fluid Restriction: 1800 ml (7 cups) Additional Copies To Polina Aguilera D.O.
--- NOTE | 2016-12-24 12:46 | Discharge Instructions ---
Discharge Instructions Admission Reason for Admission: Chest Pain Discharge Discharge Diagnosis / Problem: Non-cardiac Chest Pain Discharge Goals Goal(s): Decrease discomfort, Improve function, Learn about illness Activity Recommendations Activity Limitations: resume your previous activity Exercise/Sports Limitations: as tolerated May Resume Sexual Activity: after follow-up appointment Shower/Bathe: tomorrow Driving or Machine Use: resume 1 day after discharge Weightbearing Status: Left weightbearing . Instructions / Follow-Up Instructions / Follow-Up 1. Follow up with Dr. Aguilera on 12/26/2016 @ 1.30 PM 2. Discuss with PCP regarding re-starting Lasix and discuss if dose needs to be lowered. Current Hospital Diet Patient's current hospital diet: AHA Diet (Heart Healthy), Renal Diet Drink adequate amounts of fluids. Discharge Diet Recommended Diet: AHA Diet (Heart Healthy) Fluid Restriction: 1800 ml (7 cups) Pending Studies Studies pending at discharge: no Laboratory Results Lipid Panel Test 12/24/16 05:50 Range/Units Triglycerides Level 146 0-150 mg/dl Cholesterol Level 180 0-200 mg/dl HDL Cholesterol 45 mg/dl Cholesterol/HDL Ratio 4.0 LDL Cholesterol, Calculated 106 mg/dl Medical Emergencies . Who to Call and When: Medical Emergencies: If at any time you feel your situation is an emergency, please call 911 immediately. . Non-Emergent Contact Non-Emergency issues call your: Primary Care Provider . . "Provider Documentation" section prepared by Alexys Child. VTE Core Measure Inpt VTE Proph given/why not?: SCD's [place] Drug Monitoring Program Search Results: no issues identified
[2016-12-24 12:56] VITALS: BP 119/82; PULSE 105; TEMP 36.7; O2SAT 94
--- NOTE | 2016-12-24 16:02 | ECHOCARDIOGRAM REPORT ---
*NOTICE TO RECEIVING CONSTITUTION PARTY AGENCY This information is strictly Confidential and protected under [place] law. [place] law prohibits you from making any further disclosure of this information unless further disclosure is expressly permitted by the written consent of the person to whom it pertains or is authorized by law. A general authorization for the release of medical or other information is not sufficient for this purpose. Hospital accepts no responsibility if the information is made available to any other person, INCLUDING THE PATIENT. Interpretation Summary * Name: JAKE ODOM Study Date: 12/24/2016 09:15 AM BP: 145/81 mmHg * Patient Location: [facility]\S\N283\S\2 HR: 102 * : 1940 (M/d/yyyy) Gender: Male Height: 69 in * Age: 76 yrs Ethnicity: CA Weight: 195 lb * Ordering Physician: Razia Robb * Referring Physician: Self, Referred * Performed By: Melinda Guzman RCS * * Reason For Study: CHEST PAIN * BSA: 2.0 m2 * The study was technically adequate. * Compared to prior study, changes are noted. * -- Conclusions -- * Ejection Fraction = 55-60%. * There is moderate concentric left ventricular hypertrophy. * The aortic valve is heavily calcified. * 2D imaging and doppler interrogation of the aortic valve are discordant. * Severe aortic stenosis is present. Procedure Details * A complete two-dimensional transthoracic echocardiogram was performed (2D, M-mode, Doppler and color flow Doppler). * The study was technically difficult. * A contrast injection of Definity was performed to improve assessment of LV function. * Contrast was injected into an intravenous site in the right arm. * One vial of Definity ultrasound contrast was diluted in normal saline to a total volume of 10 ml. A total of '2' ml of solution was administered during imaging. * Lot # [id number] of Definity utilized for procedure. * Expiration date NOV 16. * The attending nurse who injected the contrast agent was MELVI REDDY CPL, RN. Left Ventricle * The left ventricle is normal in size. * There is moderate concentric left ventricular hypertrophy. * Left ventricular systolic function is normal. * Ejection Fraction = 55-60%. * Septal motion is consistent with conduction abnormality. Right Ventricle * The right ventricle is normal size. * The right ventricular systolic function is normal as assessed by tricuspid annular plane systolic excursion (TAPSE) (normal >1.5 cm). Atria * The left atrial size is normal. * Right atrial size is normal. * There is no evidence of atrial septal defect, but resolution does not allow assessment for a patent foramen ovale. Mitral Valve * There is moderate mitral annular calcification. * There is no mitral valve stenosis. * Significant mitral regurgitation is absent. Tricuspid Valve * The tricuspid valve is normal. * There is no tricuspid stenosis. * There is mild tricuspid regurgitation. * Doppler findings do not suggest pulmonary hypertension. Aortic Valve * The aortic valve is not well visualized. * The aortic valve is heavily calcified. * 2D imaging and doppler interrogation of the aortic valve are discordant. Severe aortic stenosis is present. * There is no significant aortic regurgitation. Pulmonic Valve * The pulmonary valve is not well seen, but the Doppler examination is normal without significant regurgitation or stenosis. Great Vessels * The aortic root and proximal ascending aorta are normal sized. Pericardium/Pleural * There is no pericardial effusion. Great Vessels * Normal inferior vena cava diameter and respiratory variation suggests normal central venous pressure. Left Ventricular Diastolic Function * Pulse wave TDI of the anterior and posterior mitral annulas demonstrates abnormal LV relaxation MMode 2D Measurements and Calculations IVSd 2.0 cm IVSs 2.3 cm LVIDd 3.8 cm LVIDs 2.7 cm LVPWd 1.4 cm LVPWs 1.5 cm IVS/LVPW 1.5 FS 28.8 % EDV(Teich) 60.9 ml ESV(Teich) 26.7 ml EF(Teich) 56.1 % EDV(cubed) 53.7 ml ESV(cubed) 19.4 ml EF(cubed) 63.9 % % IVS thick 12.2 % % LVPW thick 13.8 % LV mass(C)d 258.9 grams LV mass(C)dI 126.7 grams/m\S\2 LV mass(C)s 211.6 grams LV mass(C)sI 103.6 grams/m\S\2 SV(Teich) 34.2 ml SI(Teich) 16.7 ml/m\S\2 SV(cubed) 34.3 ml SI(cubed) 16.8 ml/m\S\2 Ao root diam 3.6 cm Ao root area 10.3 cm\S\2 LA dimension 3.7 cm LA/Ao 1.0 LVOT diam 2.0 cm LVOT area 3.1 cm\S\2 LVAd ap4 28.4 cm\S\2 LVLd ap4 6.9 cm EDV(MOD-sp4) 94.6 ml EDV(sp4-el) 98.2 ml LVAs ap4 17.9 cm\S\2 LVLs ap4 6.1 cm ESV(MOD-sp4) 45.7 ml ESV(sp4-el) 44.7 ml EF(MOD-sp4) 51.7 % EF(sp4-el) 54.5 % LVAd ap2 31.9 cm\S\2 LVLd ap2 7.7 cm EDV(MOD-sp2) 110.5 ml EDV(sp2-el) 111.9 ml LVAs ap2 21.7 cm\S\2 LVLs ap2 6.8 cm ESV(MOD-sp2) 58.5 ml ESV(sp2-el) 58.8 ml EF(MOD-sp2) 47.1 % EF(sp2-el) 47.4 % LVLd %diff 9.9 % EDV(MOD-bp) 108.6 ml LVLs %diff 10.1 % ESV(MOD-bp) 54.9 ml EF(MOD-bp) 49.4 % SV(MOD-sp4) 48.9 ml SI(MOD-sp4) 23.9 ml/m\S\2 SV(MOD-sp2) 52.0 ml SI(MOD-sp2) 25.5 ml/m\S\2 SV(MOD-bp) 53.7 ml SI(MOD-bp) 26.3 ml/m\S\2 SV(sp4-el) 53.5 ml SI(sp4-el) 26.2 ml/m\S\2 SV(sp2-el) 53.1 ml SI(sp2-el) 26.0 ml/m\S\2 Doppler Measurements and Calculations MV E max nolan 113.5 cm/sec MV P1/2t max nolan 127.6 cm/sec MV P1/2t 53.2 msec MVA(P1/2t) 4.1 cm\S\2 MV dec slope 703.0 cm/sec\S\2 MV dec time 0.13 sec PA V2 max 163.6 cm/sec PA max PG 10.7 mmHg
== END 2016-12-24 13:24 | disposition home or self-care (01) ==
LOC: ENRESERVDT → ENRESERVTM → EDBD 11:28 → C.EDC 11:28 → C.MED 14:12
PROVIDERS: ADMIT Internal Medicine; ATTEND Emergency Medicine
DX: R07.89 Other chest pain (principal); I35.0 Nonrheumatic aortic (valve) stenosis; N18.3 Chronic kidney disease, stage 3 (moderate); I12.9 Hypertensive chronic kidney disease with stage 1 through stage 4 chronic kidney disease, or unspecified chronic kidney disease; E03.9 Hypothyroidism, unspecified; E78.5 Hyperlipidemia, unspecified; E27.40 Unspecified adrenocortical insufficiency; Z79.899 Other long term (current) drug therapy; Z79.82 Long term (current) use of aspirin; Z79.52 Long term (current) use of systemic steroids; Z85.828 Personal history of other malignant neoplasm of skin; Z85.46 Personal history of malignant neoplasm of prostate; Z85.841 Personal history of malignant neoplasm of brain; Z85.118 Personal history of other malignant neoplasm of bronchus and lung; Z85.89 Personal history of malignant neoplasm of other organs and systems; Z92.3 Personal history of irradiation; Z82.49 Family history of ischemic heart disease and other diseases of the circulatory system

== ENCOUNTER 2018-02-02 11:56 | Inpatient (IN) | payer OTHER ==
[~2018-02-02] VITALS: Ht 175.3 cm; Wt 84.6 kg
[~2018-02-02 11:56] MED LIST changes: -DOXY-300 PO; +FERR18TA2 PO; -FERR325T51 PO; -LIDO2SOL17 PO; +SUNI25CA PO
--- NOTE | 2018-02-02 12:24 | EMERGENCY ROOM VISIT NOTE ---
History Report prepared by Sonali: Massimo Churchill Under the Supervision of: Dr. Bassam Maynard M.D. First contact with patient: 12:04 Chief Complaint: CARDIAC ASSESSMENT Stated Complaint: HEART BLOCK 8 SECOND PAUSES Nursing Triage Summary: pt to the ED with c/o upper chest pain and was sent in for 8 sec pauses in holter monitor told to come in by Dr marti History of Present Illness The patient is a 77 year old male who presents to the Emergency Room after referral from his registered safety engineer with concerns over the results of a r&d engineer test. The patient states that he has had a r&d engineer placed for the past 24 hours after complaining of unusual chest pain and shortness of breath on exertion. When Ernesto reviewed the results of the r&d engineer they found that there was a period of 8 seconds when the heart was not beating. They sent him to the ED immediately. The daughter added that the patient does have a history of cancer and was receiving chemotherapy treatments. During these treatments his EF dropped from 50-25. He was then diagnosed with severe aortic stenosis. Source of History: patient, family Position: other (Cardiac) Quality: other (Heart monitor results referral, SOB) Modifying Factors (Worsening): exertion (SOB is worsened with exertion) Associated Symptoms: + chest pain Note: Heart stopped beating for 8 seconds on a r&d engineer. Review of Systems See HPI for pertinent positives & negatives. A total of 10 systems reviewed and were otherwise negative. Past Medical & Surgical Medical Problems: (1) Aortic stenosis (2) AV block (3) Brain metastasis (4) Chest pain (5) CKD (chronic kidney disease) stage 3, GFR 30-59 ml/min (6) Dyslipidemia (7) History of left heart catheterization (LHC) (8) HTN (hypertension) (9) Hx of malignant neoplasm of prostate (10) Hypothyroidism (11) Metastatic renal cell carcinoma (12) Renal cell carcinoma Surgical Problems: (1) H/O partial nephrectomy (2) H/O transurethral resection of prostate (3) History of nephrectomy Family History FH: cancer (father) Hypertension Social History Smoking Status: Never Smoker Alcohol Use: none Drug Use: none Marital Status: Housing Status: lives with family Occupation Status: retired Current/Historical Medications Scheduled Aspirin (Aspirin Ec), 81 MG PO QAM Cyanocobalamin (Vitamin B12), 1,000 MG PO QAM Ferrous Sulfate (Ferrous Sulfate), 325 MG PO QAM Folic Acid (Folic Acid), 1 TAB PO DAILY Furosemide (Lasix), 20 MG PO QAM Levothyroxine Sodium (Synthroid), 100 MCG PO QAM Prednisone Tab (Prednisone), 10 MG PO DAILY Simvastatin (Zocor), 10 MG PO HS Allergies Coded Allergies: No Known Allergies (Unverified , 02/02/18) Physical Exam Vital Signs Date Time Temp Pulse Resp B/P (MAP) Pulse Ox O2 Delivery O2 Flow Rate FiO2 02/02/18 12:55 98 Room Air 02/02/18 12:30 98 Room Air 02/02/18 12:30 98 Room Air 02/02/18 12:12 96 02/02/18 12:01 36.7 105 18 153/93 96 Physical Exam GENERAL: Patient is a healthy-appearing well-nourished elderly male. HEAD: Normocephalic atraumatic EYES: Ocular movements intact pupils equal and react to light OROPHARYNX mucous membranes are moist no exudates present no erythema or edema present NECK: Supple no nuchal rigidity CHEST: Good equal expansion LUNGS: Clear and equal to auscultation CARDIAC: Normal S1 and S2. Patient has a 3/6 systolic murmur. ABDOMEN: Soft nontender no guarding BACK: No CVA tenderness EXTREMITIES: No pain upon palpation normal muscle strength in all groups no clubbing cyanosis or edema NEURO: Patient is following commands and answering questions appropriately. Alert and oriented x3 Cranial Nerves 2-12 grossly intact Medical Decision & Procedures ER Provider Diagnostic Interpretation: CHEST ONE VIEW PORTABLE CLINICAL HISTORY: 77 years-old Male presenting with CHEST PAIN. TECHNIQUE: Portable upright AP view of the chest was obtained. COMPARISON: 12/23/2016. FINDINGS: Atherosclerosis of aortic arch. Cardiac silhouette enlarged. Lungs and pleural spaces clear. Degenerative changes of the thoracic spine. Upper abdomen normal. IMPRESSION: 1. No acute cardiopulmonary disease. Electronically signed by: Asad Galloway M.D. 02/02/2018 12:40 PM Dictated Date/Time: 02/02/2018 12:39 PM Laboratory Results 02/02/18 12:21 Red Blood Count 5.03, Mean Corpuscular Volume 91.5, Mean Corpuscular Hemoglobin 29.8, Mean Corpuscular Hemoglobin Concent 32.6, Mean Platelet Volume 8.5, Neutrophils (%) (Auto) 84.6, Lymphocytes (%) (Auto) 10.0, Monocytes (%) (Auto) 4.5, Eosinophils (%) (Auto) 0.2, Basophils (%) (Auto) 0.3, Neutrophils # (Auto) 9.84, Lymphocytes # (Auto) 1.17, Monocytes # (Auto) 0.53, Eosinophils # (Auto) 0.02, Basophils # (Auto) 0.04 02/02/18 12:21 Test 02/02/18 12:21 02/02/18 12:30 02/02/18 13:19 White Blood Count 11.65 K/uL (4.8-10.8) Red Blood Count 5.03 M/uL (4.7-6.1) Hemoglobin 15.0 g/dL (14.0-18.0) Hematocrit 46.0 % (42-52) Mean Corpuscular Volume 91.5 fL (80-100) Mean Corpuscular Hemoglobin 29.8 pg (25-34) Mean Corpuscular Hemoglobin Concent 32.6 g/dl (32-36) Platelet Count 259 K/uL (130-400) Mean Platelet Volume 8.5 fL (7.4-10.4) Neutrophils (%) (Auto) 84.6 % Lymphocytes (%) (Auto) 10.0 % Monocytes (%) (Auto) 4.5 % Eosinophils (%) (Auto) 0.2 % Basophils (%) (Auto) 0.3 % Neutrophils # (Auto) 9.84 K/uL (1.4-6.5) Lymphocytes # (Auto) 1.17 K/uL (1.2-3.4) Monocytes # (Auto) 0.53 K/uL (0.11-0.59) Eosinophils # (Auto) 0.02 K/uL (0-0.5) Basophils # (Auto) 0.04 K/uL (0-0.2) RDW Standard Deviation 53.7 fL (36.4-46.3) RDW Coefficient of Variation 16.3 % (11.5-14.5) Immature Granulocyte % (Auto) 0.4 % Immature Granulocyte # (Auto) 0.05 K/uL (0.00-0.02) Est Creatinine Clear Calc Drug Dose 40.9 ml/min Estimated GFR () 47.2 Estimated GFR (Non- 40.7 BUN/Creatinine Ratio 14.7 (10-20) Calcium Level 9.1 mg/dl (8.5-10.1) Magnesium Level 2.6 mg/dl (1.8-2.4) Total Bilirubin 0.6 mg/dl (0.2-1) Direct Bilirubin 0.2 mg/dl (0-0.2) Aspartate Amino Transf (AST/SGOT) 13 U/L (15-37) Alanine Aminotransferase (ALT/SGPT) 21 U/L (12-78) Alkaline Phosphatase 77 U/L (45-117) Total Creatine Kinase 28 U/L (39-308) Creatine Kinase MB 2.4 ng/ml (0.5-3.6) Creatine Kinase MB Ratio 8.6 (0-3.0) Troponin I 0.168 ng/ml (0-0.045) Total Protein 7.0 gm/dl (6.4-8.2) Albumin 3.6 gm/dl (3.4-5.0) Lipase 204 U/L (73-393) Bedside Hemoglobin 15.6 g/dl (14.0-18.0) Bedside Hematocrit 46 % (42-52) Bedside Sodium 143 mEq/L (135-144) Bedside Potassium 4.1 mEq/L (3.3-5.0) Bedside Chloride 104 mEq/L (101-112) Bedside Total CO2 26 mEq/l (24-31) Anion Gap 18.0 mmol/L (16-25) Bedside Blood Urea Nitrogen 26 mg/dl (7-18) Bedside Creatinine 1.5 mg/dl (0.6-1.3) Bedside Glucose (other) 118 mg/dl (70-99) Bedside Ionized Calcium (Artie) 1.20 mmol/l (1.12-1.32) Labs reviewed by ED physician. Medications Administered Medications (Trade) Dose Ordered Sig/Cricket Route Start Time Stop Time Status Last Admin Dose Admin Aspirin (Aspirin Chew) 324 mg NOW STAT PO 02/02/18 12:26 02/02/18 12:27 DC 02/02/18 12:34 324 MG ECG Per My Interpretation Indication: chest pain, SOB/dyspnea Rate (beats per minute): 99 Rhythm: normal sinus Findings: T-wave inversion (Lateral), other (NOrmal [place]) ED Course 1215: Past medical records reviewed. The patient was evaluated in room C10. A complete history and physical examination was performed. 1226: Ordered Aspirin Chew 324 mg PO. 1228: I discussed the case with Dr. Nilay Orozco Associate Dean. He suggest admitting the patient to medicine. 1232: I discussed the case with Mary Ugarte. She will evaluate the patient for further treatment. Medical Decision Differential diagnosis: Etiologies such as cardiac ischemia, aortic dissection, pulmonary embolism, pneumonia, pneumothorax, musculoskeletal, infections, pericarditis, myocarditis , esophageal rupture, gastrointestinal, as well as others were entertained. This is a 77-year-old male who presents emergency department over shortness of breath and chest pains that have been ongoing for the past month. I discussed the case with the patient's registered safety engineer. His Holter monitor is recording to 21 AV block's. The patient is extremely complicated due to his critical aortic stenosis as well as his chemotherapy. He was given aspirin here in the emergency department. He was placed on r&d engineer. I will note that the patient remained asymptomatic and is not having any issues at this point. He does have an elevation in his troponin level. I did discuss the case with the hospitalist service who agreed to admit the patient. Patient family were in agreement with the treatment plan. Medication Reconcilliation Current Medication List: was personally reviewed by me Blood Pressure Screening Patient's blood pressure: Elevated blood pressure Blood pressure disposition: Referred to PCP Consults Time Called: 1225 Consulting Physician: Dr. Nilay Orozco Associate Dean. Returned Call: 1228 I discussed the case with Dr. Nilay Orozco Associate Dean. He suggest admitting the patient to medicine. Additional Consults: Time Called: 1230 Consulted Physician: Mary Freeman PA-C Returned Call: 1232 Additional Comments: I discussed the case with Mary Freeman PA-C. She will evaluate the patient for further treatment. Impression Primary Impression: Aortic stenosis Additional Impression: Chest pain Scribe Attestation The scribe's documentation has been prepared under my direction and personally reviewed by me in its entirety. I confirm that the note above accurately reflects all work, treatment, procedures, and medical decision making performed by me. Departure Information Dispostion Being Evaluated By Hospitalist Referrals Polina Aguilera D.O. (PCP) Patient Instructions [facility] Problem Qualifiers Primary Impression: Aortic stenosis Cardiac valve disease etiology: etiology unspecified Qualified Codes: I35.0 - Nonrheumatic aortic (valve) stenosis Additional Impression: Chest pain Chest pain type: unspecified Qualified Codes: R07.9 - Chest pain, unspecified
[2018-02-02] MEDS ORDERED: ASPIRIN 324 MG CHEW PO STA (12:26)
[2018-02-02 12:36] LABS: BASO % 0.3 %; BASO ABS # 0.04 K/uL (0-0.2); EOS % 0.2 %; EOS ABS # 0.02 K/uL (0-0.5); IG# 0.05 K/uL (0.00-0.02); LYMPH ABS # 1.17 K/uL (1.2-3.4); MEAN CELL VOLUME 91.5 fL (80-100); MEAN CORPUSCULAR HEMOGLOBIN 29.8 pg (25-34); MEAN CORPUSCULAR HGB CONC 32.6 g/dl (32-36); MEAN PLATELET VOLUME 8.5 fL (7.4-10.4); MONO % 4.5 %; MONO ABS # 0.53 K/uL (0.11-0.59); NEUT % 84.6 %; NEUT ABS # 9.84 K/uL (1.4-6.5); PLATELET COUNT 259 K/uL (130-400); RED CELL DISTRIBUTION WIDTH CV 16.3 % (11.5-14.5); RED CELL DISTRIBUTION WIDTH SD 53.7 fL (36.4-46.3); WHITE BLOOD COUNT 11.65 K/uL (4.8-10.8)
[2018-02-02] MEDS ORDERED: AMLO-114 PO (12:41)
[2018-02-02] MEDS ORDERED: PANT40TA PO (12:41)
[2018-02-02] MEDS ORDERED: ASPI81TA28 PO (12:41)
[2018-02-02] MEDS ORDERED: FRRS300 PO (12:41)
[2018-02-02] MEDS ORDERED: FURO-85 PO (12:41)
[2018-02-02] MEDS ORDERED: FOLI20CA PO (12:41)
[2018-02-02] MEDS ORDERED: TRAM-10 PO (12:41)
[2018-02-02] MEDS ORDERED: CYAN100020 PO (12:41)
[2018-02-02] MEDS ORDERED: ASCO100061 PO (12:41)
[2018-02-02] MEDS ORDERED: LEVO100T PO (12:41)
[2018-02-02] MEDS ORDERED: DEXA1TAB16 PO (12:41)
[2018-02-02] MEDS ORDERED: SIMV10TA2 PO (12:41)
--- NOTE | 2018-02-02 12:41 | DIAGNOSTIC IMAGING REPORT ---
CHEST ONE VIEW PORTABLE CLINICAL HISTORY: 77 years-old Male presenting with CHEST PAIN. TECHNIQUE: Portable upright AP view of the chest was obtained. COMPARISON: 12/23/2016. FINDINGS: Atherosclerosis of aortic arch. Cardiac silhouette enlarged. Lungs and pleural spaces clear. Degenerative changes of the thoracic spine. Upper abdomen normal. IMPRESSION: 1. No acute cardiopulmonary disease. Electronically signed by: Asad Galloway M.D. 02/02/2018 12:40 PM Dictated Date/Time: 02/02/2018 12:39 PM
[2018-02-02 12:54] LABS: ALBUMIN 3.6 gm/dl (3.4-5.0); CALCIUM 9.1 mg/dl (8.5-10.1); CREATININE 1.59 mg/dl (0.60-1.40)
[2018-02-02 12:54] LABS: ISTAT CREATININE 1.5 mg/dl (0.6-1.3); ISTAT IONIZED CALCIUM 1.2 mmol/l (1.12-1.32); ISTAT POTASSIUM 4.1 mEq/L (3.3-5.0)
[2018-02-02 12:55] VITALS: O2SAT 98; Ht 175.3 cm; Wt 84.6 kg
[2018-02-02 13:08] LABS: CKMB 2.4 ng/ml (0.5-3.6)
[2018-02-02] MEDS ORDERED: ACETAMINOPHEN 325 MG TAB PO PRN (13:15)
[2018-02-02] MEDS ORDERED: NITROGLYCERIN 0.4 MG SL PER TAB CHARGE SL PRN (13:15)
[2018-02-02] MEDS ORDERED: FOLI800T PO (13:32)
[2018-02-02] MEDS ORDERED: PRED10TA PO (13:32)
[2018-02-02 14:00] VITALS: BP 149/92; PULSE 95; TEMP 36.7; O2SAT 97
[2018-02-02 14:08] LABS: INR 0.9 (0.9-1.1); PTT PATIENT 26.2 SECONDS (21.0-31.0)
--- NOTE | 2018-02-02 14:25 | History and Physical ---
History & Physical Date & Time of Service: Feb 02, 2018 at 13:41 Chief Complaint: Heart Block 8 Second Pauses Primary Care Physician: Polina Aguilera D.O. History of Present Illness Source: patient, family, clinic records, hospital records Pt is 77 y/o M with PMH metastatic renal cell carcinoma to brain, lung, adrenal , CKD III, severe aortic stenosis, mild nonobstructive CAD (cardiac cath 03/2016) , HTN, dyslipidemia, presented to ER today at request of fresh food manager office for AV block found on Holter monitor. Pt reports that he has been experiencing SOB, palpitations, and CP with walking up incline or walking up stairs. He states has to sit down for several minutes for SOB and CP to resolve. Denies any current CP or SOB or palpitations. Denies fever/chills, diaphoresis, N/V/D/C , POLK, dizziness, syncope, vision changes, neck pain, orthopnea, cough, sore throat, choking, otalgia, rhinorrhea, abdominal pain, paresthesias, weakness, extremity edema, rashes, urinary symptoms. Had echo done 01/2018: EF 25-29%, severe diffuse LV hypokinesis. LV diastolic function is several abnormal (grade III). Aortic valve is severely calcified, severe aortic stenosis is present. Mild mitral regurgitation is present. Pt following with oncology-currently following with Dr Lynn. Once EF was noted at 25% his chemo has been stopped. He had f/u with Dr Kelly and had Holter placed 01/29/18. Holter results: dominant rhythm - sinus and sinus tachycardia with intermittent AV blocks. Occasional PACs, Occasional PVCs with rare episodes of bigeminy. Intermittent 2 to 1 AV block observed on multiple occasions throughout the non waking hours. Five additional episodes of extended AV block without ventricular escape were observed with pauses of 2.9, 3.8, 3.3, 3.4, and 8.7 seconds in duration. Pt reported 4 episodes of SOB and palpitations with walking up stairs with monitor reflecting sinus tachycardia rates 102-107 beats per minute. Past Medical/Surgical History Medical Problems: (1) Aortic stenosis Status: Chronic (2) Brain metastasis Permanent Comment: s/p resection Status: Chronic (3) CKD (chronic kidney disease) stage 3, GFR 30-59 ml/min Status: Chronic (4) Dyslipidemia Status: Chronic (5) History of left heart catheterization (LHC) Permanent Comment: Diagnostic cardiac catheterization done March 2016 demonstrated mild coronary irregularities with no obstructive disease. Status: Chronic (6) HTN (hypertension) Status: Chronic (7) Hx of malignant neoplasm of prostate Status: Chronic (8) Hypothyroidism Status: Chronic (9) Metastatic renal cell carcinoma Permanent Comment: DIAGNOSIS: Metastatic renal cell carcinoma to the left parietal lobe status post resection Status post completion of radiation therapy 04/30/2016 received 2400 cGy Status: Chronic (10) Renal cell carcinoma Status: Chronic Surgical Problems: (1) H/O partial nephrectomy Status: Chronic (2) H/O transurethral resection of prostate Status: Resolved (3) History of nephrectomy Permanent Comment: Peña Perera MD 07/20/2013 Status: Resolved Family History FH: cancer (father) Hypertension Social History Smoking Status: Never Smoker Smokeless Tobacco Use: No Alcohol Use: none Drug Use: none Marital Status: Housing status: lives with significant other Occupational Status: retired Allergies Coded Allergies: No Known Allergies (Unverified , 02/02/18) Home Medications Scheduled Aspirin (Aspirin Ec), 81 MG PO QAM Cyanocobalamin (Vitamin B12), 1,000 MG PO QAM Ferrous Sulfate (Ferrous Sulfate), 325 MG PO QAM Folic Acid (Folic Acid), 1 TAB PO DAILY Furosemide (Lasix), 20 MG PO QAM Levothyroxine Sodium (Synthroid), 100 MCG PO QAM Prednisone Tab (Prednisone), 10 MG PO DAILY Simvastatin (Zocor), 10 MG PO HS Review of Systems Constitutional: No fever, No chills, No sweats, No weight loss, No weakness, No fatigue Eyes: + problem reported, No worsening of vision, No eye pain, No redness, No discharge, No diplopia ENT: No hearing loss, No unusual epistaxis, No nasal symptoms, No sore throat, No tinnitus, No trouble swallowing Respiratory: + dyspnea on exertion (See HPI), + problem reported, No cough, No sputum, No wheezing, No hemoptysis Cardiovascular: + chest pain (see HPI), No orthopnea, No PND, No edema Abdomen: No pain, No nausea, No vomiting, No diarrhea, No constipation, No GI bleeding Musculoskeletal: No joint pain, No muscle pain, No calf pain Genitourinary - Male: No hematuria, No dysuria, No urinary frequency, No urinary urgency, No urinary retention Neurologic: No memory loss, No paralysis, No numbness/tingling, No vertigo Psychiatric: No depression symptoms, No anxiety Endocrine: No excessive thirst, No excessive urination Hematologic / Lymphatic: No abnormal bleeding/bruising, No clotting problems, No night sweats Integumentary: No rash, No itch Physical Exam Vital Signs Date Time Temp Pulse Resp B/P (MAP) Pulse Ox O2 Delivery O2 Flow Rate FiO2 02/02/18 12:55 98 Room Air 02/02/18 12:30 98 Room Air 02/02/18 12:30 98 Room Air 02/02/18 12:12 96 02/02/18 12:01 36.7 105 18 153/93 96 General Appearance: WD/WN, no apparent distress Head: normocephalic, atraumatic Eyes: normal inspection, PERRL, EOMI, sclerae normal ENT: hearing grossly normal, pharynx normal, + pertinent finding (mucous membranes moist) Neck: supple, no JVD, trachea midline Respiratory/Chest: lungs clear, normal breath sounds, no respiratory distress, no accessory muscle use Cardiovascular: regular rate, rhythm, normal peripheral pulses, + systolic murmur Abdomen/GI: normal bowel sounds, non tender, soft Extremities/Musculoskelatal: no calf tenderness, normal capillary refill, normal range of motion, non-tender, + pedal edema (mild pedal edema bilateral LE ) Neurologic/Psych: alert, normal mood/affect, oriented x 3 Skin: normal color, warm/dry Diagnostics Laboratory Results Results Past 24 Hours Test 02/02/18 12:21 02/02/18 12:30 02/02/18 13:19 Range/Units White Blood Count 11.65 4.8-10.8 K/uL Red Blood Count 5.03 4.7-6.1 M/uL Hemoglobin 15.0 14.0-18.0 g/dL Hematocrit 46.0 42-52 % Mean Corpuscular Volume 91.5 80-100 fL Mean Corpuscular Hemoglobin 29.8 25-34 pg Mean Corpuscular Hemoglobin Concent 32.6 32-36 g/dl Platelet Count 259 130-400 K/uL Mean Platelet Volume 8.5 7.4-10.4 fL Neutrophils (%) (Auto) 84.6 % Lymphocytes (%) (Auto) 10.0 % Monocytes (%) (Auto) 4.5 % Eosinophils (%) (Auto) 0.2 % Basophils (%) (Auto) 0.3 % Neutrophils # (Auto) 9.84 1.4-6.5 K/uL Lymphocytes # (Auto) 1.17 1.2-3.4 K/uL Monocytes # (Auto) 0.53 0.11-0.59 K/uL Eosinophils # (Auto) 0.02 0-0.5 K/uL Basophils # (Auto) 0.04 0-0.2 K/uL RDW Standard Deviation 53.7 36.4-46.3 fL RDW Coefficient of Variation 16.3 11.5-14.5 % Immature Granulocyte % (Auto) 0.4 % Immature Granulocyte # (Auto) 0.05 0.00-0.02 K/uL Sodium Level 139 136-145 mmol/L Potassium Level 4.0 3.5-5.1 mmol/L Chloride Level 105 98-107 mmol/L Carbon Dioxide Level 26 21-32 mmol/L Anion Gap 8.0 18.0 16-25 mmol/L Blood Urea Nitrogen 23 7-18 mg/dl Creatinine 1.59 0.60-1.40 mg/dl Est Creatinine Clear Calc Drug Dose 40.9 ml/min Estimated GFR () 47.2 Estimated GFR (Non- 40.7 BUN/Creatinine Ratio 14.7 10-20 Random Glucose 114 70-99 mg/dl Calcium Level 9.1 8.5-10.1 mg/dl Total Bilirubin 0.6 0.2-1 mg/dl Direct Bilirubin 0.2 0-0.2 mg/dl Aspartate Amino Transf (AST/SGOT) 13 15-37 U/L Alanine Aminotransferase (ALT/SGPT) 21 12-78 U/L Alkaline Phosphatase 77 45-117 U/L Total Creatine Kinase 28 39-308 U/L Creatine Kinase MB 2.4 0.5-3.6 ng/ml Creatine Kinase MB Ratio 8.6 0-3.0 Troponin I 0.168 0-0.045 ng/ml Total Protein 7.0 6.4-8.2 gm/dl Albumin 3.6 3.4-5.0 gm/dl Lipase 204 73-393 U/L Bedside Hemoglobin 15.6 14.0-18.0 g/dl Bedside Hematocrit 46 42-52 % Bedside Sodium 143 135-144 mEq/L Bedside Potassium 4.1 3.3-5.0 mEq/L Bedside Chloride 104 101-112 mEq/L Bedside Total CO2 26 24-31 mEq/l Bedside Blood Urea Nitrogen 26 7-18 mg/dl Bedside Creatinine 1.5 0.6-1.3 mg/dl Bedside Glucose (other) 118 70-99 mg/dl Bedside Ionized Calcium (Artie) 1.20 1.12-1.32 mmol/l Diagnostic Radiology CXR: IMPRESSION: 1. No acute cardiopulmonary disease. EKG EKG: rate 99, sinus rhythm, L anterior fascicular block, widening QRS. Similar to compared 12/2016 Impression Assessment and Plan AV BLOCK Pt had Holter placed 01/29/18 and found to have intermittent 2:1 AV block longest pause 8.7 seconds in duration. Pt reports CP, SOB, palpitations with walking up stairs/incline only. Denies any current CP, SOB, palpitations, denies dizziness , syncope. Sinus rhythm in high 90's in ER on tele monitor. Pt not on beta blockers -tele to monitor -TSH and magnesium labs added -pacer pads -will have npo until evaluated by cardiology -cardiology consult MILDLY ELEVATED TROPONIN Hx CAD. Cardiac cath 03/2016 - mild coronary irregularities, no obstructive disease. Echo 01/2018: EF 25-29%, severe diffuse LV hypokinesis. LV diastolic function is several abnormal (grade III). Aortic valve is severely calcified, severe aortic stenosis is present. Mild mitral regurgitation is present. Pt denies CP. Given ASA in ER. -trend troponin -repeat EKG -continue ASA, statin HX METASTATIC RENAL CELL CARCINOMA TO BRAIN, LUNG, ADRENAL Chemo being held secondary to pt's EF: 25%. WBC: 11.6 was 13.3 on 01/23/18. No fever/chills -continue folic acid, vitamin B12, prednisone -oncology consult. recommends MRI brain to r/o brain metastasis SEVERE AORTIC STENOSIS Pt following with cardiology. Pt likely not candidate for interventional due to metastatic CA, renal dysfunction HYPOTHYROIDISM pending TSH -continue levothyroxine CKD III Cr: 1.59. Was 1.5 on 01/23/18 -monitor renal functions -avoid nephrotoxic agents when possible HTN Stable continue lisinopril, lasix DVT Prophylaxis -SCDs for possible procedure Disposition admit tele Full Code as per discussion with pt Follows with Dr Aguilera for routine care Pt was seen with Dr Garcia. See addendum Attending Note: Patient is a 77 yr male with PMH of metastatic renal cell carcinoma, Severe who is currently undergoing chemotherapy (Last chemo on Friday) who follows with presents after evaluation as per recommendations from his fresh food manager for AV block. Patient was noted to have a significant decrease in LV function, with EF 25-29% in Jan, 2018. Reports SOB on minimal exertion, palpitations and intermittent dizziness as well. Also reports mild chest discomfort while coming to the hospital, 12/10, retrosternal, non radiating which lasted for few minutes and resolved. Patient was recently placed on Holter on 01/29/18 and was noted to have significant pauses and so was sent to ED for further eval. Physical Exam: Vitals signs as noted above General Appearance:Moderately built and nourished, no apparent distress Head: normocephalic, Atraumatic Eyes: normal inspection, EOMI, PERRL Neck: supple, Trachea midline Respiratory/Chest: Normal breath sounds, CTA Cardiovascular: S1, S2, +systolic murmur Abdomen/GI:Soft, Non tender, Bowel sounds present Extremities/Musculoskelatal:normal inspection, 1+ b/l edema Neurologic/Psych:AAOX3, grossly no focal neurological deficits Skin:normal color,warm Assessment and Plan: AV Block Chronic Systolic CHF with EF: 25-29% Severe Aortic Stenosis No signs of volume overload Not on any AV blocking meds at home Cardiotoxicity likely secondary to chemo meds Monitor in Tele Will need MRI brain to r/o brain mets as per Oncology recommendations prior to any procedures Pacer pads placed TSH normal Will likely need pacemaker Cardiology consulted Will give gentle IV fluids given Solitary kidney and CKD III, Patient needs MRI Brain with contrast to r/o mets Discussed with patient in detail. I personally reviewed the record. Patient is interviewed and examined at bedside. Patient's care is coordinated with Taryn Kline. Please refer to the documentation above for details of patient's presentation and for discussion of other issues. Advanced Directives Existing Living Will: No Existing Power of Infectious Disease Physician: No Resuscitation Status Full Code VTE Prophylaxis Will order VTE Prophylaxis: Yes Additional Copies To Polina Aguilera D.O.
[2018-02-02 15:22] VITALS: BP 125/79; PULSE 91; TEMP 36.7; O2SAT 95
[2018-02-02] MEDS ORDERED: SODIUM CHLORIDE 0.9% 250ML 250 ML IV SCH (15:30)
[2018-02-02 16:01] VITALS: O2SAT 95
--- NOTE | 2018-02-02 16:41 | Progress Note ---
Progress Note Date of Service Feb 02, 2018. Progress Note Discussed with patient and family regarding need for IV contrast to rule out mets and given EF of 25%, the difficulty with administering IV fluids. Given history of CKD and solitary kidney, explained that patient's renal function could worsen and the potential complications and consequences involved. Patient and family would like to proceed with giving IV contrast. Will give gentle IV fluids and monitor renal function closely. Will get Head Of Geography on board if required. May need to hold Lasix tomorrow if renal function worsens. Avoid NSAIDs and other Nephrotoxic agents as able.
--- NOTE | 2018-02-02 16:55 | Cardiology Consultation ---
Cardiology Consultation Date of Service Feb 02, 2018. 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 He has chronic kidney disease on the basis of renal cell carcinoma status post nephrectomy. The patient also has a history of aortic stenosis and was turned down for surgery in 2016 due to the above. He has chronic systolic heart failure in the basis of valvular heart disease which is [place] heart association class III. Patient states that he walks to his mailbox during the day and becomes played out. His most recent echocardiogram suggested a left ventricular ejection fraction is around 25%. He had a recent Holter monitor through our office that indicates high-grade heart block and he was asked to come to the hospital. He had a MRI of the brain this afternoon which is pending. We are also waiting for his oncologist to provide us guidance regarding whether or not he is still candidate for chemotherapy. He has had no symptoms of lightheadedness, dizzy weakness, syncope or presyncope. Currently he is in good spirits. Allergies: No known medical allergies Reported Home Medications Medications Dose Route/Sig Max Daily Dose Days Date Category Prednisone 10 Mg Tab 10 Mg PO DAILY 02/02/18 Reported Folic Acid 800 Mcg Tab 1 Tab PO DAILY 02/02/18 Reported Zocor (Simvastatin) 10 Mg Tab 10 Mg PO HS 02/02/18 Reported Synthroid (Levothyroxine Sodium) 100 Mcg Tab 100 Mcg PO QAM 02/02/18 Reported Lasix (Furosemide) 20 Mg Tab 20 Mg PO QAM 02/02/18 Reported Ferrous Sulfate 325 Mg Tab 325 Mg PO QAM 02/02/18 Reported Vitamin B12 (Cyanocobalamin) 1,000 Mcg Tab 1,000 Mg PO QAM 02/02/18 Reported Aspirin Ec (Aspirin) 81 Mg Tab 81 Mg PO QAM 02/02/18 Reported Past medical history: 1. Resting 2D transthoracic ECHO demonstrating significant decline in left ventricular systolic function with ejection fraction of 25 to 29%. 2. Severe calcific aortic stenosis - symptomatic with exertional near syncope and MAN, NYHA class 3 3. Mild nonobstructive coronary artery disease per cardiac catheterization 2015 4. Metastatic renal cell carcinoma (brain, lung, adrenal) 5. CKD - 3 s/p nephrectomy Family medical history: Noncontributory Social history: Patient lives with his . He is a non-smoker. General: The patient denies weight change, night sweats, fever, chills. Head: The patient denies headache and prior head trauma. Cardiovascular: The patient denies chest pain or chest discomfort, dyspnea on exertion, palpitations, PND, orthopnea, edema, spontaneous shortness of breath, syncope and near syncope. Pulmonary: The patient denies cough, wheeze, pleurisy, hemoptysis, sputum, and excessive snoring. Gastrointestinal: The patient denies nausea, vomiting, diarrhea, constipation, bloating, hematemesis, hematochezia, and abdominal pain. Skin: The patient denies diaphoresis and rash. Musculoskeletal: The patient denies joint pain, joint swelling, myalgia, back pain, neck pain and prior injuries. Neurological: The patient denies prior stroke and seizures Vital Signs Past 12 Hours Date Time Temp Pulse Resp B/P (MAP) Pulse Ox O2 Delivery O2 Flow Rate FiO2 02/02/18 15:22 36.7 91 18 125/79 (94) 95 02/02/18 14:00 36.7 95 18 149/92 (111) 97 Room Air 02/02/18 12:55 98 Room Air 02/02/18 12:30 98 Room Air 02/02/18 12:30 98 Room Air 02/02/18 12:12 96 02/02/18 12:01 36.7 105 18 153/93 96 General Appearance: Alert and Oriented x3. NAD. Head: Normocephalic Atraumatic. Eyes: PERRLA, EOMI, conjunctiva and sclera clear Neck: Supple. No carotid bruits noted. No JVD. No HJD. Respiratory: Breath sounds clear to auscultation bilaterally. No w/r/r. Cardiovascular: Reg rate and rhythm. S1 and S2 noted. No murmurs, rubs, gallops. PMI non displace. Abdomen: Normal bowel sounds, soft nontender. no abdominal bruits. Extremities: No edema, no clubbing or cyanosis. distal pulses 2/4 bilaterally. Neuro: No focal deficits. Psychiatric: Normal affect. Echocardiogram January 2018: Interpretation Summary The qualitative LV ejection fraction is 2529% (severely reduced). There is severe diffuse left ventricular hypokinesis. The LV wall thickness is moderately increased (concentric). The left ventricular diastolic function is severely abnormal (grade III). The aortic valve is severely calcified. Severe aortic valve stenosis is present. Mild mitral regurgitation is present. Compared to last available study changes are noted as follows: Left ventricular systolic function has severely declined Holter monitor January 2018: CONCLUSIONS: 1. Duration - 23 hours, 36 minutes 2. Quality - Good 3. Dominant rhythm - sinus and sinus tachycardia with intermittent AV block 4. PACs - occasional, 52 5. PVCs - occasional, 1038 with rare episodes of bigeminy 6. Symptoms - the patient reported 4 episodes of shortness of breath and palpitations with exertion, walking up stairs with monitor reflecting sinus tachycardia rates 102-107 beats per minute 7. Intermittent 2 to 1 AV block is observed on multiple occasions throughout the non waking hours. Five additional episodes of extended AV block without ventricular escape were observed with pauses of 2.9, 3.8, 3.3,3.4 and 8.7 seconds induration impression: Sinus and sinus tachycardia with intermittent high-degree AV block longest pause 8.7 seconds in duration Confirmed by BHARTI SHINE^[id number], VICKY Last 24 Hours Test 02/02/18 12:21 02/02/18 12:30 02/02/18 18:00 White Blood Count 11.65 K/uL Red Blood Count 5.03 M/uL Hemoglobin 15.0 g/dL Hematocrit 46.0 % Mean Corpuscular Volume 91.5 fL Mean Corpuscular Hemoglobin 29.8 pg Mean Corpuscular Hemoglobin Concent 32.6 g/dl Platelet Count 259 K/uL Mean Platelet Volume 8.5 fL Neutrophils (%) (Auto) 84.6 % Lymphocytes (%) (Auto) 10.0 % Monocytes (%) (Auto) 4.5 % Eosinophils (%) (Auto) 0.2 % Basophils (%) (Auto) 0.3 % Neutrophils # (Auto) 9.84 K/uL Lymphocytes # (Auto) 1.17 K/uL Monocytes # (Auto) 0.53 K/uL Eosinophils # (Auto) 0.02 K/uL Basophils # (Auto) 0.04 K/uL RDW Standard Deviation 53.7 fL RDW Coefficient of Variation 16.3 % Immature Granulocyte % (Auto) 0.4 % Immature Granulocyte # (Auto) 0.05 K/uL Prothrombin Time 9.5 SECONDS Prothromb Time International Ratio 0.9 Activated Partial Thromboplast Time 26.2 SECONDS Partial Thromboplastin Ratio 1.0 Sodium Level 139 mmol/L Potassium Level 4.0 mmol/L Chloride Level 105 mmol/L Carbon Dioxide Level 26 mmol/L Anion Gap 8.0 mmol/L 18.0 mmol/L Blood Urea Nitrogen 23 mg/dl Creatinine 1.59 mg/dl Est Creatinine Clear Calc Drug Dose 40.9 ml/min Estimated GFR () 47.2 Estimated GFR (Non- 40.7 BUN/Creatinine Ratio 14.7 Random Glucose 114 mg/dl Calcium Level 9.1 mg/dl Magnesium Level 2.6 mg/dl Total Bilirubin 0.6 mg/dl Direct Bilirubin 0.2 mg/dl Aspartate Amino Transf (AST/SGOT) 13 U/L Alanine Aminotransferase (ALT/SGPT) 21 U/L Alkaline Phosphatase 77 U/L Total Creatine Kinase 28 U/L Creatine Kinase MB 2.4 ng/ml Creatine Kinase MB Ratio 8.6 Troponin I 0.168 ng/ml Total Protein 7.0 gm/dl Albumin 3.6 gm/dl Lipase 204 U/L Thyroid Stimulating Hormone (TSH) 1.010 uIu/ml Bedside Hemoglobin 15.6 g/dl Bedside Hematocrit 46 % Bedside Sodium 143 mEq/L Bedside Potassium 4.1 mEq/L Bedside Chloride 104 mEq/L Bedside Total CO2 26 mEq/l Bedside Blood Urea Nitrogen 26 mg/dl Bedside Creatinine 1.5 mg/dl Bedside Glucose (other) 118 mg/dl Bedside Ionized Calcium (Artie) 1.20 mmol/l Impression: 1. High-grade heart block 2. Severe aortic stenosis 3. Systolic heart failure with an estimated left ventricular ejection fraction of around 25% 4. Metastatic renal cell carcinoma Recommendations: This patient is medically complex. I had a long discussion with the patient and his family regarding a pacemaker versus conservative management. The patient does not want to have palliative care see him. He states that he understands his situation. I will talk with electrophysiology regarding the pacemaker. He may be a candidate for simple single-chamber device. We will also await his oncologist consult to see if he is going to receive additional chemotherapy or if he is not a candidate for further treatment of his cancer.
--- NOTE | 2018-02-02 17:47 | DIAGNOSTIC IMAGING REPORT ---
BRAIN COMBO CLINICAL HISTORY: hx renal ca with mets to brain COMPARISON STUDY: 04/01/2016 TECHNIQUE: Utilizing a 1.5 Lesly magnet and dedicated coil, multiplanar, multiecho imaging of the brain was performed pre and postcontrast administration. IV administration of 8 mL of Gadavist contrast was uneventful. FINDINGS: Postprocedural changes to the left occipital region are noted. Diffusion images show a small focus of increased signal medial aspect left occipital lobe bowel is considerably improved compared to the prior study. Post therapeutic/postoperative encephalomalacia of components of the occipital lobe with compensatory prominence of the occipital horn left lateral ventricle are present. Components of mild cerebral atrophy with moderate chronic small vessel change are noted throughout both cerebral hemispheres. Postcontrast images show a small linear focus of increased signal post enhancement measuring 5 mm. No additional foci of abnormal postcontrast enhancement are identified. No deviation of midline structures. Sella and parasellar regions are unremarkable. Moderate mucosal thickening of the sphenoid air cells. IMPRESSION: 1. Generally improved exam with improved postprocedural encephalomalacia left occipital lobe. 2. Moderate compensatory dilatation occipital horn left lateral ventricle. 3. Moderate cerebral atrophy and chronic small vessel change similar compared to the prior study. 4. Small linear focus of enhancement right cerebellum having a maximum dimension of 5 mm. This may represent a subacute focus of ischemic change versus small metastatic deposit. A 6 weeks MRI follow-up is suggested The above report was generated using voice recognition software. It may contain grammatical, syntax or spelling errors. Electronically signed by: Duncan Carrera M.D. 02/02/2018 5:45 PM Dictated Date/Time: 02/02/2018 5:35 PM
[2018-02-02] MEDS ORDERED: SODIUM CHLORIDE 0.9% 1000ML 250 ML IV ONE (18:30)
[2018-02-02 20:06] VITALS: BP 146/89; PULSE 89; TEMP 36.8; O2SAT 95
[2018-02-02] MEDS: SIMVASTATIN 10 MG TAB PO SCH (20:37)
[2018-02-02 20:46] VITALS: O2SAT 95
--- NOTE | 2018-02-02 21:08 | Medical Consult ---
Consultation Date of Consultation: Feb 02, 2018. Attending Physician: Jn Garcia MD Reason for Consultation: metastatic renal cell carcinoma History of Present Illness 77 year old male with metastatic renal cell carcinoma. He has a history of bilateral renal masses. 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 He had slowly growing lesion in left kidney that was biopsied as well and showed Furhman grade 2 kidney cancer for which he underwent cryoablation in 04/15. He underwent FNA of lung nodule and pathology favored renal cell carcinoma, malignant non-small cell carcinoma. He also has history of brain metastasis for which he underwent surgery followed by post-op radiation to the brain. He was put on sutent and required dose reductions due to mouth soreness and but developed progressive disease and he was changed to Inlyta after his 12/2016 PET- CT scan showed progression. Due to HFS - in feet his dose was reduced and he was maintained on Inlyta. He had a follow up PET-CT scan in 12/2017 which showed minimal activity in left adrenal and no significant FDG activity in the pulmonary nodules. He complained of progressive MAN which he states has been getting worse over a 1 year period, with dyspnea with going uphill to his mailbox and climbing stairs. He denies dyspnea at rest. D dimer was normal. He had CXR and Echo and echo showed significant worsening EF 25%-29% and severe as well as diastolic dysfunction. Inlyta has been discontinued. He followed up with Dr Kelly and had holter. He is admitted for complete heart block. He has history of severe Aortic stenosis. He denies any chest pain. He states that he gets occasional LH when he walks uphill and MAN. He denies fatigue or cough or headache or nausea or vomiting He states that pain in feet is improved since inlyta has been discontinued. I spoke to PA and recommended MRI brain follow up since he has not had any recent brain scan and he was treated metastasis with surgery and RT in the past MRI showed: 1. Generally improved exam with improved postprocedural encephalomalacia left occipital lobe. 2. Moderate compensatory dilatation occipital horn left lateral ventricle. 3. Moderate cerebral atrophy and chronic small vessel change similar compared to the prior study. 4. Small linear focus of enhancement right cerebellum having a maximum dimension of 5 mm. This may represent a subacute focus of ischemic change versus small metastatic deposit. A 6 weeks MRI follow-up is suggested Past Medical/Surgical History PMH/PSH: avascular necrosis of hip HTN, metastatic kidney cancer, history of brain metastasis s/p surgery and post-operative RT, severe aortic stenosis, CKD stage 3, history of right nephrectomy, history of left kidney cryoablation adrenal nodule - probable metastasis history of prostate cancer s/p prostatectomy in 1997 diverticulosis brain resection for removal of cerebella/parietal lobe metastasis in 03/2016 FNA of lung Family History FH: cancer (father) Hypertension Social History and lives with his Smoking Status: Never Smoker Smokeless Tobacco Use: No Alcohol Use: none Drug Use: none Marital Status: Housing Status: lives with family Occupation Status: retired Allergies Coded Allergies: No Known Allergies (Unverified , 02/02/18) Current Inpatient Medications Current Inpatient Medications Medications (Trade) Dose Ordered Sig/Cricket Route Start Time Stop Time Status Last Admin Dose Admin Acetaminophen (Tylenol Tab) 650 mg Q4H PRN PO 02/02/18 13:15 03/04/18 13:14 Nitroglycerin (Nitrostat Tab) 0.4 mg UD PRN SL 02/02/18 13:15 03/04/18 13:14 Aspirin (Ecotrin Tab) 81 mg QAM PO 02/03/18 09:00 03/05/18 08:59 Ferrous Sulfate (Feosol Tab) 325 mg QAM PO 02/03/18 09:00 03/05/18 08:59 Furosemide (Lasix Tab) 20 mg QAM PO 02/03/18 09:00 03/05/18 08:59 Levothyroxine Sodium (Synthroid Tab) 100 mcg DAILYBB PO 02/03/18 06:30 03/05/18 06:29 Prednisone (PredniSONE TAB) 10 mg DAILY PO 02/03/18 09:00 03/05/18 08:59 Simvastatin (Zocor Tab) 10 mg HS PO 02/02/18 21:00 03/04/18 20:59 Cyanocobalamin (Vitamin B-12 Tab) 1,000 mcg DAILY PO 02/03/18 09:00 03/05/18 08:59 Folic Acid (Folvite Tab) 800 mcg DAILY PO 02/03/18 09:00 03/05/18 08:59 Sodium Chloride 250 ml @ 50 mls/hr Q5H IV 02/02/18 15:30 02/02/18 20:29 02/02/18 15:30 50 MLS/HR Sodium Chloride 250 ml @ 50 mls/hr Q5H ONCE IV 02/02/18 18:30 02/02/18 23:29 02/02/18 17:49 50 MLS/HR Review of Systems Constitutional: No fever, No chills, No weight loss, No fatigue ENT: No unusual epistaxis, No sore throat, No trouble swallowing Respiratory: + dyspnea on exertion, No cough, No sputum Cardiovascular: No chest pain, No edema Abdomen: No pain, No nausea, No vomiting Musculoskeletal: + problem reported (pain in soles of feet, improved), No joint pain, No swelling, No calf pain Genitourinary - Male: No hematuria, No dysuria Hematologic / Lymphatic: No swollen lymph nodes, No night sweats Integumentary: No rash, No itch Physical Exam Date Time Temp Pulse Resp B/P (MAP) Pulse Ox O2 Delivery O2 Flow Rate FiO2 02/02/18 20:06 36.8 89 19 146/89 (108) 95 Room Air 02/02/18 16:01 95 Room Air 02/02/18 15:22 36.7 91 18 125/79 (94) 95 02/02/18 14:00 36.7 95 18 149/92 (111) 97 Room Air 02/02/18 12:55 98 Room Air 02/02/18 12:30 98 Room Air 02/02/18 12:30 98 Room Air 02/02/18 12:12 96 02/02/18 12:01 36.7 105 18 153/93 96 General Appearance: WD/WN, no apparent distress Head: normocephalic, atraumatic Eyes: sclerae normal Neck: supple, no adenopathy Respiratory/Chest: chest non-tender, lungs clear, normal breath sounds, no respiratory distress, no accessory muscle use Cardiovascular: regular rate, rhythm, no edema Abdomen/GI: normal bowel sounds, non tender, soft, no organomegaly Extremities/Musculoskelatal: no calf tenderness, no pedal edema, non-tender Neurologic/Psych: alert, normal mood/affect, oriented x 3, + pertinent finding (grossly nonfocal exam) Skin: warm/dry, + pertinent finding (improving HFS on feet, ) Lymphatic: no adenopathy Laboratory Results Last 24 Hours Test 02/02/18 12:21 02/02/18 12:30 02/02/18 18:05 White Blood Count 11.65 K/uL Red Blood Count 5.03 M/uL Hemoglobin 15.0 g/dL Hematocrit 46.0 % Mean Corpuscular Volume 91.5 fL Mean Corpuscular Hemoglobin 29.8 pg Mean Corpuscular Hemoglobin Concent 32.6 g/dl Platelet Count 259 K/uL Mean Platelet Volume 8.5 fL Neutrophils (%) (Auto) 84.6 % Lymphocytes (%) (Auto) 10.0 % Monocytes (%) (Auto) 4.5 % Eosinophils (%) (Auto) 0.2 % Basophils (%) (Auto) 0.3 % Neutrophils # (Auto) 9.84 K/uL Lymphocytes # (Auto) 1.17 K/uL Monocytes # (Auto) 0.53 K/uL Eosinophils # (Auto) 0.02 K/uL Basophils # (Auto) 0.04 K/uL RDW Standard Deviation 53.7 fL RDW Coefficient of Variation 16.3 % Immature Granulocyte % (Auto) 0.4 % Immature Granulocyte # (Auto) 0.05 K/uL Prothrombin Time 9.5 SECONDS Prothromb Time International Ratio 0.9 Activated Partial Thromboplast Time 26.2 SECONDS Partial Thromboplastin Ratio 1.0 Sodium Level 139 mmol/L Potassium Level 4.0 mmol/L Chloride Level 105 mmol/L Carbon Dioxide Level 26 mmol/L Anion Gap 8.0 mmol/L 18.0 mmol/L Blood Urea Nitrogen 23 mg/dl Creatinine 1.59 mg/dl Est Creatinine Clear Calc Drug Dose 40.9 ml/min Estimated GFR () 47.2 Estimated GFR (Non- 40.7 BUN/Creatinine Ratio 14.7 Random Glucose 114 mg/dl Calcium Level 9.1 mg/dl Magnesium Level 2.6 mg/dl Total Bilirubin 0.6 mg/dl Direct Bilirubin 0.2 mg/dl Aspartate Amino Transf (AST/SGOT) 13 U/L Alanine Aminotransferase (ALT/SGPT) 21 U/L Alkaline Phosphatase 77 U/L Total Creatine Kinase 28 U/L Creatine Kinase MB 2.4 ng/ml Creatine Kinase MB Ratio 8.6 Troponin I 0.168 ng/ml 0.248 ng/ml Total Protein 7.0 gm/dl Albumin 3.6 gm/dl Lipase 204 U/L Thyroid Stimulating Hormone (TSH) 1.010 uIu/ml Bedside Hemoglobin 15.6 g/dl Bedside Hematocrit 46 % Bedside Sodium 143 mEq/L Bedside Potassium 4.1 mEq/L Bedside Chloride 104 mEq/L Bedside Total CO2 26 mEq/l Bedside Blood Urea Nitrogen 26 mg/dl Bedside Creatinine 1.5 mg/dl Bedside Glucose (other) 118 mg/dl Bedside Ionized Calcium (Artie) 1.20 mmol/l Assessment & Plan 77 year old male with metastatic kidney cancer. He has a history of treated solitary brain metastasis in 2016 - underwent resection of the solitary metastasis as well as post-operative RT. He had progression after sutent and was on inlyta until this was recently discontinued due to his worsening EF. His most recent PET-CT scan showed no activity in pulmonary nodules and only minimal activity in nodular adrenal/adrenal nodule. He has not had any biopsy of the adrenal but had FNA of lung in the past which favored renal cell primary. At this time, he has only left adrenal with minimal activity that may be treated met vs active renal cell metastasis Due to worsening EF, I discussed with him that we will Not resume inlyta at this time - this was discontinued and patient is aware and has stopped the medication as instructed. I discussed alternative treatment option of nivolumab (opdivo) with him and that this regimen would be IV every 2 weeks until progression or unacceptable toxicity. I discussed benefits and potential side effects including autoimmune side effects with him. However, we would hold off on starting until he is stabilized from cardiac standpoint and follow up outpatient. Right now he is stable from his kidney cancer standpoint and is not having any symptoms related to his cancer at this time. Hand foot syndrome in his feet from inlyta is improving. Median survival of metastatic kidney cancer with more available treatment options is approximately 28 months. He had a prior nephrectomy and cryoablation , he had resection of brain met and no anemia and his calcium level is normal. check ldh He had only minimal FDG uptake is seen in the left adrenal on recent PET-CT scan and no uptake in the lung nodules, so does not have extensive cancer burden on the PET-CT imaging. However, his EF is severely reduced which I discuss with him may limit treatment options or clinical trial eligibility in the future. Other options for metastatic kidney cancer include cabozantinib, afinitor and clinical trial options Nivolumab (Opdivo) is a reasonable option for his kidney cancer at this time as despite his cardiac issue he still has a reasonable PFS ECOG PS 1, and states that he was still doing light work at his home before hospitalization though unable to carry out strenuous activity due to his MAN, and he states that he is interested in considering this treatment depending on cardiology management of his current cardiac issues first then he will give consideration to this. Patient does not have any headaches Recommend obtain neurology input on the brain MRI whether the finding is most likely from ischemic change or not or even prior RT which he has had in the past. He would need to have a follow up CT scan head in the future if he will no longer be able to have follow up MRI depending on cardiology intervention Follow up in the office upon discharge Thank you for consult
[2018-02-03] VITALS (15 sets, daily range): BP systolic 89–149; BP diastolic 53–86; PULSE 76–99; TEMP 36.5–36.9; O2SAT 93–96
[2018-02-03 01:48] LABS: BASO % 0.3 %; BASO ABS # 0.03 K/uL (0-0.2); EOS % 0.5 %; EOS ABS # 0.05 K/uL (0-0.5); HEMATOCRIT 44.6 % (42-52); HEMOGLOBIN 14.2 g/dL (14.0-18.0); IG# 0.05 K/uL (0.00-0.02); LYMPH % 22.6 %; LYMPH ABS # 2.28 K/uL (1.2-3.4); MEAN CELL VOLUME 91.4 fL (80-100); MEAN CORPUSCULAR HEMOGLOBIN 29.1 pg (25-34); MEAN CORPUSCULAR HGB CONC 31.8 g/dl (32-36); MEAN PLATELET VOLUME 8.5 fL (7.4-10.4); MONO % 8.7 %; MONO ABS # 0.88 K/uL (0.11-0.59); NEUT % 67.4 %; PLATELET COUNT 269 K/uL (130-400); RED CELL DISTRIBUTION WIDTH SD 53.1 fL (36.4-46.3); WHITE BLOOD COUNT 10.09 K/uL (4.8-10.8)
[2018-02-03 02:08] LABS: CALCIUM 8.4 mg/dl (8.5-10.1); CREATININE 1.36 mg/dl (0.60-1.40); POTASSIUM 3.9 mmol/L (3.5-5.1)
[2018-02-03] MEDS ORDERED: POTASSIUM CHLORIDE 10 MEQ TABCR PO STA (02:45)
[2018-02-03] MEDS: LEVOTHYROXINE 100 MCG TAB PO SCH (05:38)
[2018-02-03] MEDS ORDERED: FUROSEMIDE 20 MG TAB PO SCH (09:00)
--- NOTE | 2018-02-03 10:15 | Clinical Documentation Query ---
CLINICAL DOCUMENTATION QUERY 77 yo male admitted with chest pain and shortness of breath. The patient's troponins range from 0.168 - 0.312 and continue to trend upward. EKG shows NSR with T wave inversion in lateral leads. In your clinical opinion is this patient being managed for: ( ) Type 2 TX due to demand ischemia ( ) Not Agree ( ) Other explanation of clinical findings (Please Explain) ( ) Unable to determine (Please Define) ( x) Need to Discuss The medical record reflects the following clinical findings, treatment, and risk factors. Clinical Indicators: As above Treatment: Cardiology consult, serial EKGs, serial troponins, monitor Risk Factors: Age, chronic systolic CHF, CKD, lung mets Please clarify and document your clinical opinion in the progress notes and discharge summary. Terms such as "probable", "suspected", "likely", "questionable", "possible", or "still to be ruled out" are acceptable. IF IN AGREEMENT, YOU MUST DOCUMENT ABOVE DIAGNOSTIC STATEMENT IN DAILY PROGRESS NOTES AND DISCHARGE SUMMARY. This document is not part of the patient's record. Thank You, Edel Aguilar RN [phone]
--- NOTE | 2018-02-03 10:34 | Cardiology Follow-Up ---
Subjective Subjective Date of Service: Feb 03, 2018. Pt evaluation today including: conversation w/ patient, physical exam, chart review, lab review, review of studies, review of inpatient medication list Additional Details: Early this morning the patient had a prolonged asystole which resulted in his transfer to the ICU. He immediately returned to a sinus mechanism with appropriate heart rates and was completely asymptomatic. He has no complaints this morning. He was seen by electrophysiology this morning and they have agreed to place a pacemaker. Dr. Lynn's note is appreciated. I think the pacemaker is appropriate for quality of life for this patient. I do not believe an ICD is indicated as this patient has a terminal illness. Problem List Medical Problems: (1) Intracranial edema Status: Acute (2) Intracranial mass Status: Acute (3) Metastatic cancer Status: Acute (4) Precordial chest pain Status: Acute Objective Vital Signs Last Vital Signs Documentation Date Time Temp Pulse Resp B/P (MAP) Pulse Ox O2 Delivery O2 Flow Rate FiO2 02/03/18 04:00 96 Room Air 02/03/18 02:16 36.9 82 20 02/03/18 02:09 130/85 (100) Physical Exam: General Appearance: no apparent distress ENT: normal ENT inspection Neck: no adenopathy, thyroid normal, no JVD Respiratory/Chest: lungs clear, normal breath sounds Cardiovascular: regular rate, rhythm, no edema, + systolic murmur Abdomen: normal bowel sounds, non tender, soft Extremities: no pedal edema, no calf tenderness 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 High-grade heart block 2. Aortic stenosis 3. 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 Metastatic renal cell carcinoma Recommendations: As outlined above the patient is willing to proceed with a permanent pacemaker. I think this is appropriate for quality of life for him. EP has seen him and agreed to proceed. Medications: Current Inpatient Medications Medications (Trade) Dose Ordered Sig/[facility] Route Start Time Stop Time Status Last Admin Dose Admin Acetaminophen (Tylenol Tab) 650 mg Q4H PRN PO 02/02/18 13:15 03/04/18 13:14 Nitroglycerin (Nitrostat Tab) 0.4 mg UD PRN SL 02/02/18 13:15 4/4/18 13:14 Aspirin (Ecotrin Tab) 81 mg QAM PO 02/03/18 09:00 03/05/18 08:59 Ferrous Sulfate (Feosol Tab) 325 mg QAM PO 02/03/18 09:00 03/05/18 08:59 Levothyroxine Sodium (Synthroid Tab) 100 mcg DAILYBB PO 02/03/18 06:00 03/05/18 06:29 02/03/18 05:38 100 MCG Prednisone (PredniSONE TAB) 10 mg DAILY PO 02/03/18 09:00 03/05/18 08:59 Simvastatin (Zocor Tab) 10 mg HS PO 02/02/18 21:00 03/04/18 20:59 02/02/18 20:37 10 MG Cyanocobalamin (Vitamin B-12 Tab) 1,000 mcg DAILY PO 02/03/18 09:00 03/05/18 08:59 Folic Acid (Folvite Tab) 800 mcg DAILY PO 02/03/18 09:00 03/05/18 08:59 Lab Results: Last 24 Hours Test 02/02/18 12:21 02/02/18 12:30 02/02/18 18:05 02/03/18 00:12 White Blood Count 11.65 K/uL Red Blood Count 5.03 M/uL Hemoglobin 15.0 g/dL Hematocrit 46.0 % Mean Corpuscular Volume 91.5 fL Mean Corpuscular Hemoglobin 29.8 pg Mean Corpuscular Hemoglobin Concent 32.6 g/dl Platelet Count 259 K/uL Mean Platelet Volume 8.5 fL Neutrophils (%) (Auto) 84.6 % Lymphocytes (%) (Auto) 10.0 % Monocytes (%) (Auto) 4.5 % Eosinophils (%) (Auto) 0.2 % Basophils (%) (Auto) 0.3 % Neutrophils # (Auto) 9.84 K/uL Lymphocytes # (Auto) 1.17 K/uL Monocytes # (Auto) 0.53 K/uL Eosinophils # (Auto) 0.02 K/uL Basophils # (Auto) 0.04 K/uL RDW Standard Deviation 53.7 fL RDW Coefficient of Variation 16.3 % Immature Granulocyte % (Auto) 0.4 % Immature Granulocyte # (Auto) 0.05 K/uL Prothrombin Time 9.5 SECONDS Prothromb Time International Ratio 0.9 Activated Partial Thromboplast Time 26.2 SECONDS Partial Thromboplastin Ratio 1.0 Sodium Level 139 mmol/L Potassium Level 4.0 mmol/L Chloride Level 105 mmol/L Carbon Dioxide Level 26 mmol/L Anion Gap 8.0 mmol/L 18.0 mmol/L Blood Urea Nitrogen 23 mg/dl Creatinine 1.59 mg/dl Est Creatinine Clear Calc Drug Dose 40.9 ml/min Estimated GFR () 47.2 Estimated GFR (Non- 40.7 BUN/Creatinine Ratio 14.7 Random Glucose 114 mg/dl Calcium Level 9.1 mg/dl Magnesium Level 2.6 mg/dl Total Bilirubin 0.6 mg/dl Direct Bilirubin 0.2 mg/dl Aspartate Amino Transf (AST/SGOT) 13 U/L Alanine Aminotransferase (ALT/SGPT) 21 U/L Alkaline Phosphatase 77 U/L Total Creatine Kinase 28 U/L Creatine Kinase MB 2.4 ng/ml Creatine Kinase MB Ratio 8.6 Troponin I 0.168 ng/ml 0.248 ng/ml 0.301 ng/ml Total Protein 7.0 gm/dl Albumin 3.6 gm/dl Lipase 204 U/L Thyroid Stimulating Hormone (TSH) 1.010 uIu/ml Bedside Hemoglobin 15.6 g/dl Bedside Hematocrit 46 % Bedside Sodium 143 mEq/L Bedside Potassium 4.1 mEq/L Bedside Chloride 104 mEq/L Bedside Total CO2 26 mEq/l Bedside Blood Urea Nitrogen 26 mg/dl Bedside Creatinine 1.5 mg/dl Bedside Glucose (other) 118 mg/dl Bedside Ionized Calcium (Artie) 1.20 mmol/l Test 02/03/18 01:32 White Blood Count 10.09 K/uL Red Blood Count 4.88 M/uL Hemoglobin 14.2 g/dL Hematocrit 44.6 % Mean Corpuscular Volume 91.4 fL Mean Corpuscular Hemoglobin 29.1 pg Mean Corpuscular Hemoglobin Concent 31.8 g/dl Platelet Count 269 K/uL Mean Platelet Volume 8.5 fL Neutrophils (%) (Auto) 67.4 % Lymphocytes (%) (Auto) 22.6 % Monocytes (%) (Auto) 8.7 % Eosinophils (%) (Auto) 0.5 % Basophils (%) (Auto) 0.3 % Neutrophils # (Auto) 6.80 K/uL Lymphocytes # (Auto) 2.28 K/uL Monocytes # (Auto) 0.88 K/uL Eosinophils # (Auto) 0.05 K/uL Basophils # (Auto) 0.03 K/uL RDW Standard Deviation 53.1 fL RDW Coefficient of Variation 16.0 % Immature Granulocyte % (Auto) 0.5 % Immature Granulocyte # (Auto) 0.05 K/uL Activated Partial Thromboplast Time 25.0 SECONDS Partial Thromboplastin Ratio 1.0 Sodium Level 144 mmol/L Potassium Level 3.9 mmol/L Chloride Level 109 mmol/L Carbon Dioxide Level 27 mmol/L Anion Gap 8.0 mmol/L Blood Urea Nitrogen 23 mg/dl Creatinine 1.36 mg/dl Est Creatinine Clear Calc Drug Dose 47.9 ml/min Estimated GFR () 57.0 Estimated GFR (Non- 49.1 BUN/Creatinine Ratio 16.7 Random Glucose 89 mg/dl Calcium Level 8.4 mg/dl Magnesium Level 2.4 mg/dl Lactate Dehydrogenase 162 U/L Troponin I 0.312 ng/ml Albumin 3.0 gm/dl
--- NOTE | 2018-02-03 10:42 | History & Physical Bridge Note ---
H&P Re-Evaluation Bridge Note: I have examined the patient, reviewed the History & Physical and in the interval since the performance of the History & Physical I have noted the following changes of clinical significance: Pt with intermittent CHB for a dual chamber pacemaker-no ICD given extent of his renal cell cancer medium life expectancy 24 months.
--- NOTE | 2018-02-03 10:43 | Pre Sedation Assessment ---
Pre Sedation Assessment General Date of Sedation: Feb 03, 2018. Vital Signs Past 12 Hours Date Time Temp Pulse Resp B/P (MAP) Pulse Ox O2 Delivery O2 Flow Rate FiO2 02/03/18 04:00 96 Room Air 02/03/18 02:16 36.9 82 20 96 02/03/18 02:09 36.7 93 21 130/85 (100) 96 02/03/18 00:02 36.9 82 16 143/80 (101) 96 Room Air 02/03/18 00:00 Room Air Review Cardiovascular: regular rate, rhythm, + systolic murmur Lungs: lungs clear, normal breath sounds Pre-Sedation Airway Assessment Smoking Status: Never Smoker Hx of Sleep Apnea: No Hx of difficult intubation: No Short Thick Neck: No Thyro-mental Distance: < or =3 Finger Breadths Oral Cavity: Dentures Mallampati Classification: Class II ASA Classification: Class II Procedure Planning Contraindications for Sedation: None Current Medications Reviewed: Yes Notes The planned sedation has been discussed with the patient. Informed Consent was obtained. I have identified the patient, determined the appropriateness of sedation and have assessed the patient immediately prior to the procedure. All medicine(s) and interventions are by my order.
[2018-02-03] MEDS ORDERED: BACITRACIN 50000 UNIT VIAL ONE (10:50)
[2018-02-03] MEDS ORDERED: MIDAZOLAM HCL 5 MG/ML 1 ML VIAL ONE (10:50)
[2018-02-03] MEDS ORDERED: FENTANYL CITRATE INJ 50 MCG/1 ML 2 ML VIAL ONE (10:50)
[2018-02-03] MEDS ORDERED: CEFAZOLIN SOD 1 GM VIAL ONE (10:50)
[2018-02-03] MEDS ORDERED: BUPIVACAINE 0.5 % 5 MG/1 ML MPF 30ML VIAL ONE (10:51)
[2018-02-03] MEDS ORDERED: LIDOCAINE HCL 1% 20 ML VIAL ONE (10:51)
--- NOTE | 2018-02-03 10:51 | Progress Note ---
Progress Note Date of Service Feb 03, 2018. Progress Note Full EP consult dictated; pt with intermittent CHB, severe , Probably NICM EF now 25%, metastatic renal cell carcinoma with medium life expectancy of 24 months. Due to his intermittent CHB recommend dual chamber permanent pacemaker.
--- NOTE | 2018-02-03 12:57 | [facility] Post Operative Brief Note ---
Immediate Operative Summary Operative Date Feb 03, 2018. Pre-Operative Diagnosis intermittent CHB Post-Operative Diagnosis same Procedure(s) Performed dual chamber pacemaker with peripheral venogram Surgeon norbert melo Claims Adjuster Crop Surgeon(s) none Estimated Blood Loss 10cc Findings See Below see official report Fluids (cc crystalloids) 100cc Specimens none Drains None Anesthesia Type IV Sedat Cons RN Only Complication(s) none Disposition Accompanied Pt To Recover: yes Disposition: icu
[2018-02-03] MEDS ORDERED: OXYCODONE/ACETAMINOPHEN 5-325 TAB PO PRN (13:00)
[2018-02-03] MEDS: CYANOCOBALAMIN 500 MCG TAB (VIT B-12) PO SCH (14:41)
[2018-02-03] MEDS: FoLIC ACID TAB 400 MCG TAB PO SCH (14:41)
[2018-02-03] MEDS: FERROUS SULFATE 325 MG TAB PO SCH (14:42)
[2018-02-03] MEDS: ASPIRIN 81 MG ECTAB PO SCH (14:42)
--- NOTE | 2018-02-03 19:32 | Progress Note ---
Internal Med Progress Note Date of Service: Feb 03, 2018. Provider Documentation: SUBJECTIVE: s/p cardiac pacemaker placement OBJECTIVE: Exam: General- no acute distress Eyes- EOMI Neck- trachea midline, no JVD Lungs- CTABL Heart- pacemaker incision on right chest that is without opening, heart rate is regular in rate Abdomen- soft, nontender, + bowel sounds Extremities- no edema Neuro- no gross deficits ASSESSMENT & PLAN: Pt is 77 y/o M with PMH metastatic renal cell carcinoma to brain, lung, adrenal , CKD III, severe aortic stenosis, mild nonobstructive CAD (cardiac cath 03/2016) , HTN, dyslipidemia On admission patient had elevated troponins suggestive of Type 2 AK due to demand ischemia however the main issues in regards to patient's cardiac health is the following 1. High-grade heart block 2. Severe aortic stenosis 3. Systolic heart failure with an estimated left ventricular ejection fraction of around 25% (Cardiomyopathy most likely due to aortic stenosis but also chemotherapy) Is s/p pacemaker on 02/03/18 Prior to the pacemaker placement, patient had an MRI brain with following radiology impressions 1. Generally improved exam with improved postprocedural encephalomalacia left occipital lobe. 2. Moderate compensatory dilatation occipital horn left lateral ventricle. 3. Moderate cerebral atrophy and chronic small vessel change similar compared to the prior study. 4. Small linear focus of enhancement right cerebellum having a maximum dimension of 5 mm. The radiology reading also reports that this may represent a subacute focus of ischemic change versus small metastatic deposit and a 6 weeks MRI follow-up is suggested However given the placement of the pacemaker, this is unlikely to be MRI compatible In regards to the Metastatic renal cell carcinoma Hematology-Oncology Dr. Lynn recommends obtaining neurology input on the brain MRI whether the finding is most likely from ischemic change or not or even prior RT which he has had in the past. He would need to have a follow up CT scan head This may be possible to be done as outpatient including further planning for outpatient cancer treatments In regards to the immediate length of time in the hospital, will observe patient overnight to see if patient tolerates pacemaker, and wound healing from incision site, and to monitor kidney function since patient received IV contrast from imaging studies. Vital Signs: Date Time Temp Pulse Resp B/P (MAP) Pulse Ox O2 Delivery O2 Flow Rate FiO2 02/03/18 16:23 81 15 126/69 (88) 96 Room Air 02/03/18 16:00 36.6 86 20 107/73 (84) 96 Room Air 02/03/18 16:00 Room Air 02/03/18 15:00 87 19 89/53 (65) 02/03/18 14:45 87 19 104/65 (78) 02/03/18 14:31 85 18 105/60 (75) 02/03/18 14:16 86 18 123/56 (78) 02/03/18 13:46 76 20 99/66 (77) 02/03/18 13:16 80 14 93/62 (72) 96 Room Air 02/03/18 13:16 Room Air 02/03/18 13:05 90 16 110/70 (83) 98 Room Air 02/03/18 12:50 85 16 113/77 (89) 98 Room Air 02/03/18 08:00 Room Air 02/03/18 07:53 36.6 92 20 149/82 (104) 94 Room Air 02/03/18 04:00 96 Room Air 02/03/18 02:16 36.9 82 20 96 02/03/18 02:09 36.7 93 21 130/85 (100) 96 02/03/18 00:02 36.9 82 16 143/80 (101) 96 Room Air 02/03/18 00:00 Room Air 02/02/18 20:46 95 Room Air 02/02/18 20:06 36.8 89 19 146/89 (108) 95 Room Air Lab Results: Results Past 24 Hours Test 02/03/18 00:12 02/03/18 01:32 Range/Units Troponin I 0.301 0.312 0-0.045 ng/ml White Blood Count 10.09 4.8-10.8 K/uL Red Blood Count 4.88 4.7-6.1 M/uL Hemoglobin 14.2 14.0-18.0 g/dL Hematocrit 44.6 42-52 % Mean Corpuscular Volume 91.4 80-100 fL Mean Corpuscular Hemoglobin 29.1 25-34 pg Mean Corpuscular Hemoglobin Concent 31.8 32-36 g/dl Platelet Count 269 130-400 K/uL Mean Platelet Volume 8.5 7.4-10.4 fL Neutrophils (%) (Auto) 67.4 % Lymphocytes (%) (Auto) 22.6 % Monocytes (%) (Auto) 8.7 % Eosinophils (%) (Auto) 0.5 % Basophils (%) (Auto) 0.3 % Neutrophils # (Auto) 6.80 1.4-6.5 K/uL Lymphocytes # (Auto) 2.28 1.2-3.4 K/uL Monocytes # (Auto) 0.88 0.11-0.59 K/uL Eosinophils # (Auto) 0.05 0-0.5 K/uL Basophils # (Auto) 0.03 0-0.2 K/uL RDW Standard Deviation 53.1 36.4-46.3 fL RDW Coefficient of Variation 16.0 11.5-14.5 % Immature Granulocyte % (Auto) 0.5 % Immature Granulocyte # (Auto) 0.05 0.00-0.02 K/uL Activated Partial Thromboplast Time 25.0 21.0-31.0 SECONDS Partial Thromboplastin Ratio 1.0 Sodium Level 144 136-145 mmol/L Potassium Level 3.9 3.5-5.1 mmol/L Chloride Level 109 98-107 mmol/L Carbon Dioxide Level 27 21-32 mmol/L Anion Gap 8.0 3-11 mmol/L Blood Urea Nitrogen 23 7-18 mg/dl Creatinine 1.36 0.60-1.40 mg/dl Est Creatinine Clear Calc Drug Dose 47.9 ml/min Estimated GFR () 57.0 Estimated GFR (Non- 49.1 BUN/Creatinine Ratio 16.7 10-20 Random Glucose 89 70-99 mg/dl Calcium Level 8.4 8.5-10.1 mg/dl Magnesium Level 2.4 1.8-2.4 mg/dl Lactate Dehydrogenase 162 87-241 U/L Albumin 3.0 3.4-5.0 gm/dl Microbiology Results 02/03/18 MRSA DNA Surveillance Screen - Final, Complete Specimen Negative for MRSA by DNA Probe
[2018-02-03] MEDS: SIMVASTATIN 10 MG TAB PO SCH (20:37)
[2018-02-04 02:52] VITALS: BP 139/82; PULSE 93; TEMP 36.7; O2SAT 95
[2018-02-04] MEDS: LEVOTHYROXINE 100 MCG TAB PO SCH (05:43)
[2018-02-04 05:49] LABS: BASO % 0.2 %; BASO ABS # 0.02 K/uL (0-0.2); EOS % 0.2 %; EOS ABS # 0.02 K/uL (0-0.5); IG# 0.05 K/uL (0.00-0.02); LYMPH % 13.5 %; LYMPH ABS # 1.56 K/uL (1.2-3.4); MEAN CELL VOLUME 89.7 fL (80-100); MEAN CORPUSCULAR HEMOGLOBIN 29.9 pg (25-34); MEAN CORPUSCULAR HGB CONC 33.3 g/dl (32-36); MEAN PLATELET VOLUME 8.2 fL (7.4-10.4); MONO % 8.8 %; MONO ABS # 1.02 K/uL (0.11-0.59); NEUT % 76.9 %; NEUT ABS # 8.87 K/uL (1.4-6.5); PLATELET COUNT 223 K/uL (130-400); RED CELL DISTRIBUTION WIDTH CV 16.2 % (11.5-14.5); RED CELL DISTRIBUTION WIDTH SD 52.5 fL (36.4-46.3); WHITE BLOOD COUNT 11.54 K/uL (4.8-10.8)
--- NOTE | 2018-02-04 06:46 | DIAGNOSTIC IMAGING REPORT ---
CHEST 2 VIEWS ROUTINE HISTORY: 77 years-old Male EXACT TIME ORDERED Evaluate for pneumothorax and lead placement status post placement of a right subclavian pacer. COMPARISON: Chest radiograph 02/02/2018 TECHNIQUE: PA and lateral views of the chest FINDINGS: The lateral view is limited secondary to positioning of patient's arms. Cardiac silhouette is mildly enlarged. There is atherosclerosis of the aorta. Status post placement of a right subclavian pacer device with 2 leads present overlying the right atrium and right ventricle. The leads appear to be intact. Mild soft tissue swelling and deep tissue air about the chest wall, likely postprocedural without retained foreign body identified. Unchanged mild biapical pleural thickening/pleural parenchymal scarring without definite pneumothorax identified. Areas of chronic interstitial coarsening are noted within the bilateral lung bases. There is mild right hemidiaphragmatic elevation with obscuration of the lower right heart border at the cardiophrenic angle suggesting probable atelectasis. No overt pulmonary edema. Degenerative changes noted within the shoulders and spine. IMPRESSION: 1. Status post placement of a right subclavian pacer with leads overlying the right atrium and right ventricle. No evidence of postprocedural pneumothorax. 2. Opacity of the right cardiophrenic angle with right hemidiaphragmatic elevation suggests atelectasis. 3. Mild cardiomegaly without overt pulmonary edema. The above report was generated using voice recognition software. It may contain grammatical, syntax or spelling errors. Electronically signed by: Jim Adames M.D. 02/04/2018 6:45 AM Dictated Date/Time: 02/04/2018 6:41 AM
[2018-02-04 06:53] LABS: ALBUMIN 2.9 gm/dl (3.4-5.0); CALCIUM 8.6 mg/dl (8.5-10.1); CREATININE 1.48 mg/dl (0.60-1.40)
[2018-02-04 06:56] LABS: TOTAL PROTEIN 6.2 gm/dl (6.4-8.2)
[2018-02-04] MEDS: FERROUS SULFATE 325 MG TAB PO SCH (07:33)
[2018-02-04] MEDS: ASPIRIN 81 MG ECTAB PO SCH (07:33)
[2018-02-04] MEDS: CYANOCOBALAMIN 500 MCG TAB (VIT B-12) PO SCH (07:34)
[2018-02-04 07:50] VITALS: BP 137/90; PULSE 85; TEMP 36.9; O2SAT 96
[2018-02-04 08:00] VITALS: O2SAT 96
[2018-02-04] MEDS: FoLIC ACID TAB 400 MCG TAB PO SCH (09:33)
--- NOTE | 2018-02-04 10:32 | Cardiology Follow-Up ---
Subjective Subjective Date of Service: Feb 04, 2018. Pt evaluation today including: conversation w/ patient, physical exam, chart review, lab review, review of studies, review of inpatient medication list Additional Details: The patient had an uneventful night. He received a pacemaker yesterday and it is functioning appropriately. No new complaints. Problem List Medical Problems: (1) Intracranial edema Status: Acute (2) Intracranial mass Status: Acute (3) Metastatic cancer Status: Acute (4) Precordial chest pain Status: Acute Objective Vital Signs Last Vital Signs Documentation Date Time Temp Pulse Resp B/P (MAP) Pulse Ox O2 Delivery O2 Flow Rate FiO2 02/04/18 08:00 96 Room Air 02/04/18 07:50 36.9 85 16 137/90 (106) Physical Exam: General Appearance: no apparent distress ENT: normal ENT inspection Neck: no adenopathy, thyroid normal, no JVD Respiratory/Chest: lungs clear, normal breath sounds Cardiovascular: regular rate, rhythm, no edema, + systolic murmur Abdomen: normal bowel sounds, non tender, soft Extremities: no pedal edema, no calf tenderness 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 High-grade heart block 2. Aortic stenosis 3. 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 Metastatic renal cell carcinoma Recommendations: The patient is clinically stable. When everyone is in agreement he can be discharged home with outpatient follow-up from a cardiac standpoint. Medications: Current Inpatient Medications Medications (Trade) Dose Ordered Sig/[facility] Route Start Time Stop Time Status Last Admin Dose Admin Acetaminophen (Tylenol Tab) 650 mg Q4H PRN PO 02/02/18 13:15 03/04/18 13:14 Nitroglycerin (Nitrostat Tab) 0.4 mg UD PRN SL 02/02/18 13:15 03/04/18 13:14 Aspirin (Ecotrin Tab) 81 mg QAM PO 02/03/18 09:00 03/05/18 08:59 02/04/18 07:33 81 MG Ferrous Sulfate (Feosol Tab) 325 mg QAM PO 02/03/18 09:00 03/05/18 08:59 02/04/18 07:33 325 MG Levothyroxine Sodium (Synthroid Tab) 100 mcg DAILYBB PO 02/03/18 06:00 03/05/18 06:29 02/04/18 05:43 100 MCG Prednisone (PredniSONE TAB) 10 mg DAILY PO 02/03/18 09:00 03/05/18 08:59 02/04/18 07:33 10 MG Simvastatin (Zocor Tab) 10 mg HS PO 02/02/18 21:00 03/04/18 20:59 02/03/18 20:37 10 MG Cyanocobalamin (Vitamin B-12 Tab) 1,000 mcg DAILY PO 02/03/18 09:00 03/05/18 08:59 02/04/18 07:34 1,000 MCG Folic Acid (Folvite Tab) 800 mcg DAILY PO 02/03/18 09:00 03/05/18 08:59 02/04/18 09:33 800 MCG Oxycodone/ Acetaminophen (Percocet 5-325mg Tab) 1 tab for pain scale 4-6 2 t... Q6H PRN PO 02/03/18 13:00 02/17/18 12:59 Lab Results: Last 24 Hours Test 02/04/18 05:32 White Blood Count 11.54 K/uL Red Blood Count 4.68 M/uL Hemoglobin 14.0 g/dL Hematocrit 42.0 % Mean Corpuscular Volume 89.7 fL Mean Corpuscular Hemoglobin 29.9 pg Mean Corpuscular Hemoglobin Concent 33.3 g/dl Platelet Count 223 K/uL Mean Platelet Volume 8.2 fL Neutrophils (%) (Auto) 76.9 % Lymphocytes (%) (Auto) 13.5 % Monocytes (%) (Auto) 8.8 % Eosinophils (%) (Auto) 0.2 % Basophils (%) (Auto) 0.2 % Neutrophils # (Auto) 8.87 K/uL Lymphocytes # (Auto) 1.56 K/uL Monocytes # (Auto) 1.02 K/uL Eosinophils # (Auto) 0.02 K/uL Basophils # (Auto) 0.02 K/uL RDW Standard Deviation 52.5 fL RDW Coefficient of Variation 16.2 % Immature Granulocyte % (Auto) 0.4 % Immature Granulocyte # (Auto) 0.05 K/uL Sodium Level 138 mmol/L Potassium Level 4.0 mmol/L Chloride Level 106 mmol/L Carbon Dioxide Level 23 mmol/L Anion Gap 9.0 mmol/L Blood Urea Nitrogen 27 mg/dl Creatinine 1.48 mg/dl Est Creatinine Clear Calc Drug Dose 40.5 ml/min Estimated GFR () 51.4 Estimated GFR (Non- 44.4 BUN/Creatinine Ratio 17.9 Random Glucose 102 mg/dl Calcium Level 8.6 mg/dl Magnesium Level 2.5 mg/dl Total Bilirubin 0.9 mg/dl Aspartate Amino Transf (AST/SGOT) 16 U/L Alanine Aminotransferase (ALT/SGPT) 16 U/L Alkaline Phosphatase 65 U/L Total Protein 6.2 gm/dl Albumin 2.9 gm/dl Globulin 3.3 gm/dl Albumin/Globulin Ratio 0.9
[2018-02-04 11:39] VITALS: BP 131/81; PULSE 103; TEMP 36.8; O2SAT 93
[2018-02-04 12:00] VITALS: O2SAT 95
--- NOTE | 2018-02-04 12:33 | Progress Note ---
Internal Med Progress Note Date of Service: Feb 04, 2018. Provider Documentation: SUBJECTIVE: Patient tolerated cardiac pacemaker. No telemetry events overnight. 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 When Ernesto reviewed the results of the probate lawyer they found that there was a period of 8 seconds when the heart was not beating) On admission patient had elevated troponins suggestive of Type 2 CO due to demand ischemia however the main issues in regards to patient's cardiac health is the following 1. High-grade heart block 2. Severe aortic stenosis 3. Systolic heart failure with an estimated left ventricular ejection fraction of around 25% (Cardiomyopathy most likely due to aortic stenosis but also chemotherapy) Is s/p pacemaker on 02/03/18 Prior to the pacemaker placement, patient had an MRI brain with following radiology impressions 1. Generally improved exam with improved postprocedural encephalomalacia left occipital lobe. 2. Moderate compensatory dilatation occipital horn left lateral ventricle. 3. Moderate cerebral atrophy and chronic small vessel change similar compared to the prior study. 4. Small linear focus of enhancement right cerebellum having a maximum dimension of 5 mm. The radiology reading also reports that this may represent a subacute focus of ischemic change versus small metastatic deposit and a 6 weeks MRI follow-up is suggested However given the placement of the pacemaker, patient is unlikely to be eligible for further MRI studies In regards to the Metastatic renal cell carcinoma Hematology-Oncology Dr. Lynn recommends obtaining neurology input on the brain MRI whether the finding is most likely from ischemic change or not or even prior RT which he has had in the past. He would need to have a follow up CT scan head CT head combo completed on 02/04/18 Encephalomalacia of the left occipital lobe redemonstrated with compensatory dilation of the posterior horn left lateral ventricle. There is mild cerebral atrophy with ill-defined areas of low-attenuation within the periventricular white matter suggesting mild chronic microvascular ischemic changes. The previously discussed 5 mm linear enhancing focus of the right cerebellar hemisphere seen on comparison brain MRI 02/02/[address] No abnormal intra-axial or extra-axial enhancement is identified. There is no acute intracranial hemorrhage, midline shift, abnormal extra-axial collections, hydrocephalus or intracranial mass. No calvarial fracture. Craniotomy site of the left occipital calvarium. Mastoid air cells and middle ear cavities are clear. Mild to moderate mucosal thickening of the right sphenoid sinus. The orbits and soft tissues are unremarkable. IMPRESSION: 1. No acute intracranial abnormality identified. 2. Postoperative changes from prior left occipital craniotomy with encephalomalacia of the left occipital lobe appearing unchanged. 3. The previously described linear enhancing focus of the right cerebellar hemisphere is not appreciated by CT. No abnormal intra-axial or extra-axial enhancement identified. Hospitalist physician has asked Neurology service Dr. Moreau in regards for looking over the images as outpatient Patient has scheduled appointment to see Neena Delcid at Neurology clinic at 7:45AM [facility] for [facility] Have notified [facility] appointment line [phone] Lynn's office for hematology/oncology to see the patient earlier than March 2018 Other clinic follow ups 02/06/2018 9:[address] [facility] Hem[facility]Onc [facility] Hematology Oncology [facility] 02/09/2018 9:40 AM Nasra Quezada PA-C Internal Medicine [facility] 02/12/2018 10:30 AM Duncan Howard PA-C Cardiology [facility] 03/13/2018 9:30 AM Remarketing Manager [facility] Cardiac Studies [facility] 03/19/2018 10:00 AM AYANNA Rutledge Internal Medicine [facility] 04/02/2018 10:15 AM Misha Lynn MD Hematology/Oncology [facility] Vital Signs: Date Time Temp Pulse Resp B/P (MAP) Pulse Ox O2 Delivery O2 Flow Rate FiO2 02/04/18 12:00 95 Room Air 02/04/18 11:39 36.8 103 16 131/81 (98) 93 02/04/18 08:00 96 Room Air 02/04/18 07:50 36.9 85 16 137/90 (106) 96 Room Air 02/04/18 04:00 Room Air 02/04/18 02:52 36.7 93 18 139/82 (101) 95 Room Air 02/04/18 00:00 Room Air 02/03/18 23:21 36.5 99 20 134/83 (100) 95 Room Air 02/03/18 20:00 36.6 92 20 128/86 (100) 93 Room Air 02/03/18 20:00 Room Air 02/03/18 16:23 81 15 126/69 (88) 96 Room Air 02/03/18 16:00 36.6 86 20 107/73 (84) 96 Room Air 02/03/18 16:00 Room Air 02/03/18 15:00 87 19 89/53 (65) Lab Results: Results Past 24 Hours Test 02/04/18 05:32 Range/Units White Blood Count 11.54 4.8-10.8 K/uL Red Blood Count 4.68 4.7-6.1 M/uL Hemoglobin 14.0 14.0-18.0 g/dL Hematocrit 42.0 42-52 % Mean Corpuscular Volume 89.7 80-100 fL Mean Corpuscular Hemoglobin 29.9 25-34 pg Mean Corpuscular Hemoglobin Concent 33.3 32-36 g/dl Platelet Count 223 130-400 K/uL Mean Platelet Volume 8.2 7.4-10.4 fL Neutrophils (%) (Auto) 76.9 % Lymphocytes (%) (Auto) 13.5 % Monocytes (%) (Auto) 8.8 % Eosinophils (%) (Auto) 0.2 % Basophils (%) (Auto) 0.2 % Neutrophils # (Auto) 8.87 1.4-6.5 K/uL Lymphocytes # (Auto) 1.56 1.2-3.4 K/uL Monocytes # (Auto) 1.02 0.11-0.59 K/uL Eosinophils # (Auto) 0.02 0-0.5 K/uL Basophils # (Auto) 0.02 0-0.2 K/uL RDW Standard Deviation 52.5 36.4-46.3 fL RDW Coefficient of Variation 16.2 11.5-14.5 % Immature Granulocyte % (Auto) 0.4 % Immature Granulocyte # (Auto) 0.05 0.00-0.02 K/uL Sodium Level 138 136-145 mmol/L Potassium Level 4.0 3.5-5.1 mmol/L Chloride Level 106 98-107 mmol/L Carbon Dioxide Level 23 21-32 mmol/L Anion Gap 9.0 3-11 mmol/L Blood Urea Nitrogen 27 7-18 mg/dl Creatinine 1.48 0.60-1.40 mg/dl Est Creatinine Clear Calc Drug Dose 40.5 ml/min Estimated GFR () 51.4 Estimated GFR (Non- 44.4 BUN/Creatinine Ratio 17.9 10-20 Random Glucose 102 70-99 mg/dl Calcium Level 8.6 8.5-10.1 mg/dl Magnesium Level 2.5 1.8-2.4 mg/dl Total Bilirubin 0.9 0.2-1 mg/dl Aspartate Amino Transf (AST/SGOT) 16 15-37 U/L Alanine Aminotransferase (ALT/SGPT) 16 12-78 U/L Alkaline Phosphatase 65 45-117 U/L Total Protein 6.2 6.4-8.2 gm/dl Albumin 2.9 3.4-5.0 gm/dl Globulin 3.3 2.5-4.0 gm/dl Albumin/Globulin Ratio 0.9 0.9-2
[2018-02-04] MEDS ORDERED: SODIUM CHLORIDE 0.9% 1000ML 1,000 ML IV SCH (13:15)
[2018-02-04] MEDS ORDERED: OPTIRAY 320 IV PRN (13:15)
--- NOTE | 2018-02-04 13:29 | Cardiology Follow-Up ---
Subjective Subjective Date of Service: Feb 04, 2018. Pt evaluation today including: conversation w/ patient, physical exam, chart review, lab review, review of studies Pain: minimal discomfort at the pacemaker site Problem List Medical Problems: (1) Intracranial edema Status: Acute (2) Intracranial mass Status: Acute (3) Metastatic cancer Status: Acute (4) Precordial chest pain Status: Acute Review of Systems Constitutional: No fever Respiratory: No shortness of breath, No dyspnea on exertion Cardiac: No chest pain, No edema, No palpitations Abdomen: No nausea, No vomiting, No diarrhea Endo: No fatigue Objective Vital Signs Last Vital Signs Documentation Date Time Temp Pulse Resp B/P (MAP) Pulse Ox O2 Delivery O2 Flow Rate FiO2 02/04/18 12:00 95 Room Air 02/04/18 11:39 36.8 103 16 131/81 (98) Physical Exam: General Appearance: no apparent distress Eyes: bilateral eyes PERRL, bilateral eyes EOMI Neck: no JVD Respiratory/Chest: lungs clear, normal breath sounds Cardiovascular: regular rate, rhythm, no edema, + tachycardia, + systolic murmur Abdomen: normal bowel sounds, non tender, soft Extremities: no pedal edema Neurologic/Psychiatric: alert, oriented x 3 Skin: normal color, warm/dry (right pectoral incision intact; no hematoma mild ecchymosis) Assessment and Plan Impression: 1. Intermittent CHB s/p dual chamber ppm 02/03/2018 2. Sinus tachycardia 3. NICM EF 25% 4. Renal Cell Carcinoma metastatic median survival 24 months 5. Severe 6. Chronic systolic HF, NYHA Class III Plan: Stable and normal pacemaker function ok for discharge home from an EP perspective pt needs device and wound check in our [facility] device clinic in 1 week pt not allowed to left the right elbow over the right shoulder for 1 month or lift more than 10 pounds with the right arm for 2 weeks can shower in 2 days Discharge planning: home Medications: Medications Administered Medications (Trade) Dose Ordered Sig/Cricket Route Start Time Stop Time Status Last Admin Dose Admin Aspirin (Aspirin Chew) 324 mg NOW STAT PO 02/02/18 12:26 02/02/18 12:27 DC 02/02/18 12:34 324 MG Aspirin (Ecotrin Tab) 81 mg QAM PO 02/03/18 09:00 03/05/18 08:59 02/04/18 07:33 81 MG Ferrous Sulfate (Feosol Tab) 325 mg QAM PO 02/03/18 09:00 03/05/18 08:59 02/04/18 07:33 325 MG Levothyroxine Sodium (Synthroid Tab) 100 mcg DAILYBB PO 02/03/18 06:00 03/05/18 06:29 02/04/18 05:43 100 MCG Prednisone (PredniSONE TAB) 10 mg DAILY PO 02/03/18 09:00 03/05/18 08:59 02/04/18 07:33 10 MG Simvastatin (Zocor Tab) 10 mg HS PO 02/02/18 21:00 03/04/18 20:59 02/03/18 20:37 10 MG Cyanocobalamin (Vitamin B-12 Tab) 1,000 mcg DAILY PO 02/03/18 09:00 03/05/18 08:59 02/04/18 07:34 1,000 MCG Folic Acid (Folvite Tab) 800 mcg DAILY PO 02/03/18 09:00 03/05/18 08:59 02/04/18 09:33 800 MCG Sodium Chloride 250 ml @ 50 mls/hr Q5H IV 02/02/18 15:30 02/02/18 20:29 DC 02/02/18 15:30 50 MLS/HR Sodium Chloride 250 ml @ 50 mls/hr Q5H ONCE IV 02/02/18 18:30 02/02/18 23:29 DC 02/02/18 17:49 50 MLS/HR Potassium Chloride (Klor-Con M10) 10 meq NOW STAT PO 02/03/18 02:45 02/03/18 02:54 DC 02/03/18 03:14 10 MEQ Midazolam HCl (Versed Inj) 5 mg STK-MED ONCE .ROUTE 02/03/18 10:50 02/03/18 10:51 DC 02/03/18 10:50 5 MG Fentanyl Citrate (Fentanyl Inj) 100 mcg STK-MED ONCE .ROUTE 02/03/18 10:50 02/03/18 10:51 DC 02/03/18 10:50 100 MCG Cefazolin Sodium (Ancef Inj) 2,000 mg STK-MED ONCE .ROUTE 02/03/18 10:50 02/03/18 10:51 DC 02/03/18 10:50 2,000 MG Lab Results: CXR: RA and RV lead in place No PTX ECG: SR 87bpm LVH Pacemaker interrogation today: RA and RV lead testing within normal limits and stable from implant Last 24 Hours Test 02/04/18 05:32 White Blood Count 11.54 K/uL Red Blood Count 4.68 M/uL Hemoglobin 14.0 g/dL Hematocrit 42.0 % Mean Corpuscular Volume 89.7 fL Mean Corpuscular Hemoglobin 29.9 pg Mean Corpuscular Hemoglobin Concent 33.3 g/dl Platelet Count 223 K/uL Mean Platelet Volume 8.2 fL Neutrophils (%) (Auto) 76.9 % Lymphocytes (%) (Auto) 13.5 % Monocytes (%) (Auto) 8.8 % Eosinophils (%) (Auto) 0.2 % Basophils (%) (Auto) 0.2 % Neutrophils # (Auto) 8.87 K/uL Lymphocytes # (Auto) 1.56 K/uL Monocytes # (Auto) 1.02 K/uL Eosinophils # (Auto) 0.02 K/uL Basophils # (Auto) 0.02 K/uL RDW Standard Deviation 52.5 fL RDW Coefficient of Variation 16.2 % Immature Granulocyte % (Auto) 0.4 % Immature Granulocyte # (Auto) 0.05 K/uL Sodium Level 138 mmol/L Potassium Level 4.0 mmol/L Chloride Level 106 mmol/L Carbon Dioxide Level 23 mmol/L Anion Gap 9.0 mmol/L Blood Urea Nitrogen 27 mg/dl Creatinine 1.48 mg/dl Est Creatinine Clear Calc Drug Dose 40.5 ml/min Estimated GFR () 51.4 Estimated GFR (Non- 44.4 BUN/Creatinine Ratio 17.9 Random Glucose 102 mg/dl Calcium Level 8.6 mg/dl Magnesium Level 2.5 mg/dl Total Bilirubin 0.9 mg/dl Aspartate Amino Transf (AST/SGOT) 16 U/L Alanine Aminotransferase (ALT/SGPT) 16 U/L Alkaline Phosphatase 65 U/L Total Protein 6.2 gm/dl Albumin 2.9 gm/dl Globulin 3.3 gm/dl Albumin/Globulin Ratio 0.9
--- NOTE | 2018-02-04 14:16 | DIAGNOSTIC IMAGING REPORT ---
HEAD COMBO HISTORY: 77 years-old Male to establish basline CT head because of abnormal MRI follow-up study in a patient with history of renal cell carcinoma with metastasis. COMPARISON: MRI of the brain 02/02/2018 TECHNIQUE: Multiple axial CT images of the head were obtained both with and without the use of 94 no Optiray 320 IV contrast. FINDINGS: Encephalomalacia of the left occipital lobe redemonstrated with compensatory dilation of the posterior horn left lateral ventricle. There is mild cerebral atrophy with ill-defined areas of low-attenuation within the periventricular white matter suggesting mild chronic microvascular ischemic changes. The previously discussed 5 mm linear enhancing focus of the right cerebellar hemisphere seen on comparison brain MRI 02/02/[address] No abnormal intra-axial or extra-axial enhancement is identified. There is no acute intracranial hemorrhage, midline shift, abnormal extra-axial collections, hydrocephalus or intracranial mass. No calvarial fracture. Craniotomy site of the left occipital calvarium. Mastoid air cells and middle ear cavities are clear. Mild to moderate mucosal thickening of the right sphenoid sinus. The orbits and soft tissues are unremarkable. IMPRESSION: 1. No acute intracranial abnormality identified. 2. Postoperative changes from prior left occipital craniotomy with encephalomalacia of the left occipital lobe appearing unchanged. 3. The previously described linear enhancing focus of the right cerebellar hemisphere is not appreciated by CT. No abnormal intra-axial or extra-axial enhancement identified. The above report was generated using voice recognition software. It may contain grammatical, syntax or spelling errors. Electronically signed by: Jim Adames M.D. 02/04/2018 2:14 PM Dictated Date/Time: 02/04/2018 2:08 PM
--- NOTE | 2018-02-04 14:58 | Discharge Instructions ---
Discharge Instructions Date of Service Feb 04, 2018. Admission Reason for Admission: Av Block Discharge Discharge Diagnosis / Problem: metastatic renal cell carcinoma, heart block, pacemaker, CKD Discharge Goals Goal(s): Improve function, Improve disease control Activity Recommendations Activity Limitations: per Instructions/Follow-up section Shower/Bathe: no limitations . 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 When Ernesto reviewed the results of the alarm security or surveillance monitor they found that there was a period of 8 seconds when the heart was not beating) On admission patient had elevated troponins suggestive of Type 2 [place] due to demand ischemia however the main issues in regards to patient's cardiac health is the following 1. High-grade heart block 2. Severe aortic stenosis 3. Systolic heart failure with an estimated left ventricular ejection fraction of around 25% (Cardiomyopathy most likely due to aortic stenosis but also chemotherapy) Is s/p pacemaker on 02/03/18 Prior to the pacemaker placement, patient had an MRI brain with following radiology impressions 1. Generally improved exam with improved postprocedural encephalomalacia left occipital lobe. 2. Moderate compensatory dilatation occipital horn left lateral ventricle. 3. Moderate cerebral atrophy and chronic small vessel change similar compared to the prior study. 4. Small linear focus of enhancement right cerebellum having a maximum dimension of 5 mm. The radiology reading also reports that this may represent a subacute focus of ischemic change versus small metastatic deposit and a 6 weeks MRI follow-up is suggested However given the placement of the pacemaker, patient is unlikely to be eligible for further MRI studies In regards to the Metastatic renal cell carcinoma Hematology-Oncology Dr. Lynn recommends obtaining neurology input on the brain MRI whether the finding is most likely from ischemic change or not or even prior RT which he has had in the past. He would need to have a follow up CT scan head CT head combo completed on 02/04/18 Encephalomalacia of the left occipital lobe redemonstrated with compensatory dilation of the posterior horn left lateral ventricle. There is mild cerebral atrophy with ill-defined areas of low-attenuation within the periventricular white matter suggesting mild chronic microvascular ischemic changes. The previously discussed 5 mm linear enhancing focus of the right cerebellar hemisphere seen on comparison brain MRI 02/02/[address] CT. No abnormal intra-axial or extra-axial enhancement is identified. There is no acute intracranial hemorrhage, midline shift, abnormal extra-axial collections, hydrocephalus or intracranial mass. No calvarial fracture. Craniotomy site of the left occipital calvarium. Mastoid air cells and middle ear cavities are clear. Mild to moderate mucosal thickening of the right sphenoid sinus. The orbits and soft tissues are unremarkable. IMPRESSION: 1. No acute intracranial abnormality identified. 2. Postoperative changes from prior left occipital craniotomy with encephalomalacia of the left occipital lobe appearing unchanged. 3. The previously described linear enhancing focus of the right cerebellar hemisphere is not appreciated by CT. No abnormal intra-axial or extra-axial enhancement identified. Hospitalist physician has asked Neurology service Dr. Moreau in regards for looking over the images as outpatient Patient has scheduled appointment to see Neena Delcid at Neurology clinic at 7:45AM [facility] evaluation Have notified [facility] appointment line [phone] Lynn's office for hematology/oncology to see the patient earlier than March 2018 Other clinic follow ups 02/06/2018 9:15 AM [facility] Hem[facility]Onc [facility] Hematology Oncology [facility] 02/09/2018 9:40 AM Nasra Quezada PA-C Internal Medicine [facility] 02/12/2018 10:30 AM Duncan Howard PA-C Cardiology [facility] 03/13/2018 9:30 AM Photocopying Equipment Mechanic [facility] Cardiac Studies [facility] 03/19/2018 10:00 AM AYANNA Rutledge Internal Medicine [facility] 04/02/2018 10:15 AM Misha Lynn MD Hematology/Oncology [facility] Call your Primary Care doctor if any of the following symptoms or problems start or get worse: * Shortness of breath or difficulty breathing * Wake up at night short of breath * Chest pain * Cough * Swelling of your hands, feet, or legs * More fatigued or tired with your normal activity * Palpitations - sudden fast heart beats WEIGHT * Weigh yourself every morning after using the bathroom. * Use the same scale. * Wear the same amount of clothing. * Write your weight down on a chart. * Call your Primary Care doctor if you gain more than 2-3 pounds in 1-2 days. MEDICATIONS * Use this discharge instruction sheet for medication instructions. * Take your medications at the time your doctor ordered. * Do not skip a dose of your medicines. * If you miss a dose of medicine, take it as soon as possible, but DO NOT DOUBLE A DOSE. * Read your medicine information when you get home. * Know all of the side effects of your medicine. If in doubt, ask your pharmacist * Call your Primary Care doctor's office if you have any side effects. * Be sure all of your doctors know what medicine and herbs you take (including cold, flu, and herbal medicine). Take the following with you to your follow-up doctor appointments: * Weight Chart * Medication List * List of questions Do not drink excessive alcohol, beer or wine. Current Hospital Diet Patient's current hospital diet: Regular Diet Discharge Diet Recommended Diet: AHA Diet (Heart Healthy) Procedures Procedures Performed: dual chamber pacemaker with peripheral venogram Pending Studies Studies pending at discharge: no Laboratory Results 02/04/18 05:32 Red Blood Count 4.68, Mean Corpuscular Volume 89.7, Mean Corpuscular Hemoglobin 29.9, Mean Corpuscular Hemoglobin Concent 33.3, Mean Platelet Volume 8.2, Neutrophils (%) (Auto) 76.9, Lymphocytes (%) (Auto) 13.5, Monocytes (%) (Auto) 8.8, Eosinophils (%) (Auto) 0.2, Basophils (%) (Auto) 0.2, Neutrophils # (Auto) 8.87, Lymphocytes # (Auto) 1.56, Monocytes # (Auto) 1.02, Eosinophils # (Auto) 0.02, Basophils # (Auto) 0.02 02/04/18 05:32 Test 02/02/18 12:21 02/02/18 12:30 02/03/18 01:32 02/04/18 05:32 Prothrombin Time 9.5 SECONDS (9.0-12.0) Prothromb Time International Ratio 0.9 (0.9-1.1) Direct Bilirubin 0.2 mg/dl (0-0.2) Total Creatine Kinase 28 U/L (39-308) Creatine Kinase MB 2.4 ng/ml (0.5-3.6) Creatine Kinase MB Ratio 8.6 (0-3.0) Lipase 204 U/L (73-393) Thyroid Stimulating Hormone (TSH) 1.010 uIu/ml (0.300-4.500) Bedside Hemoglobin 15.6 g/dl (14.0-18.0) Bedside Hematocrit 46 % (42-52) Bedside Sodium 143 mEq/L (135-144) Bedside Potassium 4.1 mEq/L (3.3-5.0) Bedside Chloride 104 mEq/L (101-112) Bedside Total CO2 26 mEq/l (24-31) Bedside Blood Urea Nitrogen 26 mg/dl (7-18) Bedside Creatinine 1.5 mg/dl (0.6-1.3) Bedside Glucose (other) 118 mg/dl (70-99) Bedside Ionized Calcium (Artie) 1.20 mmol/l (1.12-1.32) Activated Partial Thromboplast Time 25.0 SECONDS (21.0-31.0) Partial Thromboplastin Ratio 1.0 Lactate Dehydrogenase 162 U/L (87-241) Troponin I 0.312 ng/ml (0-0.045) White Blood Count 11.54 K/uL (4.8-10.8) Red Blood Count 4.68 M/uL (4.7-6.1) Hemoglobin 14.0 g/dL (14.0-18.0) Hematocrit 42.0 % (42-52) Mean Corpuscular Volume 89.7 fL (80-100) Mean Corpuscular Hemoglobin 29.9 pg (25-34) Mean Corpuscular Hemoglobin Concent 33.3 g/dl (32-36) Platelet Count 223 K/uL (130-400) Mean Platelet Volume 8.2 fL (7.4-10.4) Neutrophils (%) (Auto) 76.9 % Lymphocytes (%) (Auto) 13.5 % Monocytes (%) (Auto) 8.8 % Eosinophils (%) (Auto) 0.2 % Basophils (%) (Auto) 0.2 % Neutrophils # (Auto) 8.87 K/uL (1.4-6.5) Lymphocytes # (Auto) 1.56 K/uL (1.2-3.4) Monocytes # (Auto) 1.02 K/uL (0.11-0.59) Eosinophils # (Auto) 0.02 K/uL (0-0.5) Basophils # (Auto) 0.02 K/uL (0-0.2) RDW Standard Deviation 52.5 fL (36.4-46.3) RDW Coefficient of Variation 16.2 % (11.5-14.5) Immature Granulocyte % (Auto) 0.4 % Immature Granulocyte # (Auto) 0.05 K/uL (0.00-0.02) Anion Gap 9.0 mmol/L (3-11) Est Creatinine Clear Calc Drug Dose 40.5 ml/min Estimated GFR () 51.4 Estimated GFR (Non- 44.4 BUN/Creatinine Ratio 17.9 (10-20) Calcium Level 8.6 mg/dl (8.5-10.1) Magnesium Level 2.5 mg/dl (1.8-2.4) Total Bilirubin 0.9 mg/dl (0.2-1) Aspartate Amino Transf (AST/SGOT) 16 U/L (15-37) Alanine Aminotransferase (ALT/SGPT) 16 U/L (12-78) Alkaline Phosphatase 65 U/L (45-117) Total Protein 6.2 gm/dl (6.4-8.2) Albumin 2.9 gm/dl (3.4-5.0) Globulin 3.3 gm/dl (2.5-4.0) Albumin/Globulin Ratio 0.9 (0.9-2) Date/Time Source Procedure Growth Status 02/03/18 03:00 Nasal MRSA DNA Surveillance Screen - Final Specimen Negative for MRSA by DNA Probe [facility] . Who to Call and When: Call 911 or go to the Emergency Room if: * If at any time you feel your situation is an emergency * You have tightness or pain in your chest that does not go away with rest or Nitroglycerin * You are very short of breath even with rest . Non-Emergent Contact Non-Emergency issues call your: Primary Care Provider, Brass[employer] Cutter, Neurologist, Oncologist Call Non-Emergent contact if: you have any medication questions . . "Provider Documentation" section prepared by Kashmir Nunez. .
[2018-02-04 15:10] VITALS: BP 131/81; PULSE 103; TEMP 36.8; O2SAT 95
--- NOTE | 2018-02-04 15:58 | Discharge Summary ---
Discharge Summary Date of Service Feb 04, 2018. Discharge Summary Admission Date: Feb 02, 2018 at 13:15 Discharge Date: Feb 04, 2018 Discharge Disposition: Home Principal Diagnosis: metastatic renal cell carcinoma, High-grade heart block, pacemaker, Severe aortic stenosis, CKD, Systolic heart failure with an estimated left ventricular ejection fraction of around 25% (Cardiomyopathy most likely due to aortic stenosis but also chemotherapy) Medication Reconciliation Continued Medications: Aspirin (Aspirin Ec) 81 Mg Tab 81 MG PO QAM Cyanocobalamin (Vitamin B12) 1,000 Mcg Tab 1000 MG PO QAM Ferrous Sulfate (Ferrous Sulfate) 325 Mg Tab 325 MG PO QAM Folic Acid (Folic Acid) 800 Mcg Tab 1 TAB PO DAILY Furosemide (Lasix) 20 Mg Tab 20 MG PO QAM Levothyroxine Sodium (Synthroid) 100 Mcg Tab 100 MCG PO QAM Prednisone Tab (Prednisone) 10 Mg Tab 10 MG PO DAILY, TAB Simvastatin (Zocor) 10 Mg Tab 10 MG PO HS Admission Information HPI (per Admitting provider): Pt is 77 y/o M with PMH 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 Pt reports that he has been experiencing SOB, palpitations, and CP with walking up incline or walking up stairs. He states has to sit down for several minutes for SOB and CP to resolve. Denies any current CP or SOB or palpitations. Denies fever/chills, diaphoresis, N/V/D/C , POLK, dizziness, syncope, vision changes, neck pain, orthopnea, cough, sore throat, choking, otalgia, rhinorrhea, abdominal pain, paresthesias, weakness, extremity edema, rashes, urinary symptoms. Had echo done 01/2018: EF 25-29%, severe diffuse LV hypokinesis. LV diastolic function is several abnormal (grade III). Aortic valve is severely calcified, severe aortic stenosis is present. Mild mitral regurgitation is present. Pt following with oncology-currently following with Dr Lynn. Once EF was noted at 25% his chemo has been stopped. He had f/u with Dr Kelly and had Holter placed 01/29/18. Holter results: dominant rhythm - sinus and sinus tachycardia with intermittent AV blocks. Occasional PACs, Occasional PVCs with rare episodes of bigeminy. Intermittent 2 to 1 AV block observed on multiple occasions throughout the non waking hours. Five additional episodes of extended AV block without ventricular escape were observed with pauses of 2.9, 3.8, 3.3, 3.4, and 8.7 seconds in duration. Pt reported 4 episodes of SOB and palpitations with walking up stairs with monitor reflecting sinus tachycardia rates 102-107 beats per minute. Physical Exam (per Admitting): General Appearance: WD/WN, no apparent distress Head: normocephalic, atraumatic Eyes: normal inspection, PERRL, EOMI, sclerae normal ENT: hearing grossly normal, pharynx normal, + pertinent finding (mucous membranes moist) Neck: supple, no JVD, trachea midline Respiratory/Chest: lungs clear, normal breath sounds, no respiratory distress, no accessory muscle use Cardiovascular: regular rate, rhythm, normal peripheral pulses, + systolic murmur Abdomen/GI: normal bowel sounds, non tender, soft Extremities/Musculoskelatal: no calf tenderness, normal capillary refill, normal range of motion, non-tender, + pedal edema (mild pedal edema bilateral LE ) Neurologic/Psych: alert, normal mood/affect, oriented x 3 Skin: normal color, warm/dry Hospital Course Pt is 77 y/o M with PMH 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 When Ernesto reviewed the results of the it consultant they found that there was a period of 8 seconds when the heart was not beating) On admission patient had elevated troponins suggestive of Type 2 CT due to demand ischemia however the main issues in regards to patient's cardiac health is the following 1. High-grade heart block 2. Severe aortic stenosis 3. Systolic heart failure with an estimated left ventricular ejection fraction of around 25% (Cardiomyopathy most likely due to aortic stenosis but also chemotherapy) Is s/p pacemaker on 02/03/18 Prior to the pacemaker placement, patient had an MRI brain with following radiology impressions 1. Generally improved exam with improved postprocedural encephalomalacia left occipital lobe. 2. Moderate compensatory dilatation occipital horn left lateral ventricle. 3. Moderate cerebral atrophy and chronic small vessel change similar compared to the prior study. 4. Small linear focus of enhancement right cerebellum having a maximum dimension of 5 mm. The radiology reading also reports that this may represent a subacute focus of ischemic change versus small metastatic deposit and a 6 weeks MRI follow-up is suggested However given the placement of the pacemaker, patient is unlikely to be eligible for further MRI studies In regards to the Metastatic renal cell carcinoma Hematology-Oncology Dr. Lynn recommends obtaining neurology input on the brain MRI whether the finding is most likely from ischemic change or not or even prior RT which he has had in the past. He would need to have a follow up CT scan head CT head combo completed on 02/04/18 Encephalomalacia of the left occipital lobe redemonstrated with compensatory dilation of the posterior horn left lateral ventricle. There is mild cerebral atrophy with ill-defined areas of low-attenuation within the periventricular white matter suggesting mild chronic microvascular ischemic changes. The previously discussed 5 mm linear enhancing focus of the right cerebellar hemisphere seen on comparison brain MRI 02/02/[address]. No abnormal intra-axial or extra-axial enhancement is identified. There is no acute intracranial hemorrhage, midline shift, abnormal extra-axial collections, hydrocephalus or intracranial mass. No calvarial fracture. Craniotomy site of the left occipital calvarium. Mastoid air cells and middle ear cavities are clear. Mild to moderate mucosal thickening of the right sphenoid sinus. The orbits and soft tissues are unremarkable. IMPRESSION: 1. No acute intracranial abnormality identified. 2. Postoperative changes from prior left occipital craniotomy with encephalomalacia of the left occipital lobe appearing unchanged. 3. The previously described linear enhancing focus of the right cerebellar hemisphere is not appreciated by CT. No abnormal intra-axial or extra-axial enhancement identified. Hospitalist physician has asked Neurology service Dr. Moreau in regards for looking over the images as outpatient Patient has scheduled appointment to see Neena Delcid at Neurology clinic at 7:45AM Images will be uploaded to [facility] portal for neurology evaluation Have notified [facility] appointment line [phone] Lynn's office for hematology/oncology to see the patient earlier than March 2018 Other clinic follow ups 02/06/2018 9:15 AM [facility] Hem[facility]Onc [facility] Hematology Oncology [facility] 02/09/2018 9:40 AM Nasra Quezada PA-C Internal Medicine [facility] 02/12/2018 10:30 AM Duncan Howard PA-C Cardiology [facility] 03/13/2018 9:30 AM Training And Quality Manager [facility] Cardiac Studies [facility] 03/19/2018 10:00 AM AYANNA Rutledge Internal Medicine [facility] 04/02/2018 10:15 AM Misha Lynn MD Hematology/Oncology [facility] Total time spent on discharge = 60 minutes This includes examination of the patient, discharge planning, medication reconciliation, and communication with other providers. Discharge Instructions see above
--- NOTE | 2018-02-04 18:33 | CARDIOLOGY CONSULTATION ---
DATE OF CONSULTATION: 02/03/2018 REFERRING PHYSICIAN: Ori Pemberton DO. REASON FOR CONSULTATION: Intermittent complete heart block HISTORY OF PRESENT ILLNESS: This is a 77-year-old gentleman who has a past medical history significant for metastatic renal cell carcinoma to the brain, lung and adrenal glands. He is status post nephrectomy and was on chemotherapy, but this was stopped due to a decline in his ejection fraction. He has severe aortic stenosis, was turned down for surgery in 2016 due to his cancer. Chronic systolic heart failure, [place] Heart Association class 3, nonischemic cardiomyopathy with most recent ejection fraction of 25%. He recently wore a Holter monitor and was found to have intermittent complete heart block and was referred to the hospital. Due to his intermittent complete heart block, fortunately not symptomatic, electrophysiology consult was prompted. The patient denies any syncope, lightheadedness or dizziness. Denies any palpitations or significant shortness of breath. He denies any chest pains. Overall, may be a mild decline in his functional activity status, but otherwise says he has been doing well. PAST MEDICAL HISTORY: As outlined above. PAST SURGICAL HISTORY: Nephrectomy. FAMILY HISTORY: Noncontributory. SOCIAL HISTORY: Lifelong nonsmoker. No alcohol use. ALLERGIES: No known drug allergies. HOME MEDICATIONS: Include aspirin, vitamin B12, folic acid, Lasix, Synthroid, prednisone, and simvastatin. REVIEW OF SYSTEMS: All other 10 point review of systems reviewed and are essentially negative at this time. See HPI for pertinent positives. PHYSICAL EXAMINATION: VITAL SIGNS: Temperature 36.5, heart rate 99, respirations 20, blood pressure 134/83, oxygen saturation 95% on room air. GENERAL: He is awake, alert and oriented x3 in no acute distress, sitting up comfortably in the bed. HEENT: Normocephalic, atraumatic. Extraocular motions intact. Sclerae is nonicteric. Mucous membranes moist. NECK: Supple, no carotid bruits appreciated. No JVD. Carotid upstrokes normal. CARDIOVASCULAR: Normal S1, regular rate and rhythm. Positive systolic ejection murmur with slight diminished S2. PULMONARY: Clear to auscultation bilaterally. No wheeze, rales, rhonchi. ABDOMEN: Positive bowel sounds, soft, nontender, nondistended. EXTREMITIES: No clubbing or cyanosis bilateral fingers. No edema bilateral lower extremities. NEUROLOGIC: Grossly intact. SKIN: Grossly intact. PERTINENT TESTING: Telemetry sinus rhythm with a brief episode of complete heart block for about 8 seconds. EKGs on admission, sinus rhythm, 99 beats per minute, left anterior fascicular block, LVH. EKG on 02/03/2018 sinus rhythm, 90 beats per minute, LVH. LABORATORY STUDIES: Hematology: WBCs 10, hemoglobin 14, hematocrit 44, platelets 269. CMP: Sodium 144, potassium 3.9, chloride 109, carbon dioxide 27, BUN 23, creatinine 1.36, glucose 89, magnesium 2.4, calcium 8.4, albumin 3. Echocardiogram in our office on 01/20/2018, just a week ago, ejection fraction is 25-29%. IMPRESSION: 1. Intermittent complete heart block. 2. Severe aortic stenosis, not an open heart surgery candidate secondary to metastatic renal cell cancer. 3. Nonischemic cardiomyopathy, ejection fraction 25-29%, most likely secondary to the severe aortic stenosis. 4. Chronic systolic heart failure, [place] Heart Association class 2. 5. Metastatic renal cell cancer, no longer on chemotherapy due to the decline in the ejection fraction. Median prognosis as per hematology/oncology is 24 months. 6. Chronic kidney disease. PLAN: Recommend a dual chamber permanent pacemaker secondary to intermittent complete heart block. I would not do a defibrillator given his median survival of 24 months from his renal cell carcinoma. Discussed the risks, benefits, alternatives to the procedure. Risks include but not limited to sudden cardiac , cardiac arrhythmias, cerebrovascular accident, myocardial infarction, injury to the blood vessels, chamber of the heart, bleeding and infection or injury to the lung. The patient understood these risks and agreed to have procedure as planned. Informed consent was obtained. We will aim to do this procedure today.
--- NOTE | 2018-02-04 19:06 | OPERATIVE REPORT ---
DATE OF OPERATION: 02/03/2018 PREOPERATIVE DIAGNOSIS: Intermittent complete heart block. POSTOPERATIVE DIAGNOSIS: Same. PROCEDURE: Dual chamber rate responsive permanent pacemaker under fluoroscopic guidance along with peripheral venogram. SURGEON: Dr. Neena Sykes. BENEFITS PROCESSOR: None. ANESTHESIA: Monitored conscious sedation administered under my supervision by Enmanuel Vargas. Start time 11:10, end 12:50. Total of 5 mg of Versed, 100 mcg of fentanyl. Antibiotics, 2 grams of Ancef. INTRAVENOUS FLUIDS: 100 mL BLOOD LOSS: Less than 10 mL COMPLICATIONS: None. CONDITION: Stable. URINE OUTPUT: Not applicable. SPECIMENS: None. FINDINGS: See below. DRAINS: None. INDICATIONS: This 77-year-old gentleman has a past medical history for severe aortic stenosis, not an open heart surgery candidate secondary to metastatic renal cell carcinoma with a median survival of ____ months, chronic systolic heart failure New Heart Association class 3, chronic kidney disease, status post nephrectomy, and most recently found to have nonischemic cardiomyopathy, ejection fraction 25%, and then on an outpatient Holter, intermittent complete heart block. Due to the intermittent complete heart block, he was recommended pacemaker. Due to the fact that he has severe malignancy with a median survival of ____ months, he was not recommended defibrillator even though his ejection fraction was 25%. CONSENT: Consent was obtained prior to the patient going into electrophysiology lab. The patient was informed of risks, benefits and alternatives to the procedure. Risks include but not limited to sudden cardiac , cardiac arrhythmias, cerebrovascular accident, myocardial infarction, injury to the blood vessels, chamber of the heart, lung, bleeding and infection. The patient understood these risks and agreed to the procedure as planned. Informed consent was obtained. DESCRIPTION OF THE PROCEDURE: The patient was brought into the electrophysiology lab in a fasting state. He was connected to continuous cardiac technologist. A timeout was performed to ensure the patient identity and procedure correctly. The patient was prepped and draped over the right infraclavicular space in normal surgical standard fashion. Monitored conscious sedation was given throughout the procedure for the patient's comfort level under my supervision. Felton precautions were maintained throughout the procedure. 10 mL of 1% lidocaine-bupivacaine mixture were given in the right deltopectoral groove. Incision was made in the right deltopectoral groove. Blunt dissection was performed down to identify the cephalic vein; however, none could be identified, so peripheral venogram using 10 mL of IV contrast, followed by 10 mL of saline was performed. The axillary vein and subclavian vein were noted. I had difficulty getting axillary venous access, so I ended up doing a subclavian stick without any problems. Guidewire was inserted without any resistance. An 8-Turkish sheath was inserted over the guidewire without any resistance. The dilator was removed and a second guidewire was inserted through the 8-Turkish sheath to allow for retained venous access. The sheath was removed, flushed, then dilator reinserted over it, then the sheath was reinserted over the guidewire without any resistance. The guidewire and dilator removed. The right ventricular lead was then advanced into the right ventricle and positioned into right ventricular apex under fluoroscopic guidance. There was adequate pacing and sensing thresholds and no diaphragmatic stimulation with high output pacing. The 8-Turkish sheath was peeled away and the lead was fixated to pectoralis muscle using 0 silk suture. A second 8-Turkish sheath was inserted through the retained guidewire without any resistance. The guidewire and dilator removed. The right atrial pacing lead was advanced into right atrium and positioned into right atrial appendage under fluoroscopic guidance. There was adequate pacing and sensing thresholds and no diaphragmatic stimulation with high output pacing. The 8-Turkish sheath was peeled away and the lead was fixated to pectoralis muscle using 0 silk suture. Pacemaker pocket was created using blunt dissection over the pectoralis muscle within the pectoralis fascia. The pocket was flushed with copious amounts of bacitracin saline wash and inspected for hemostasis. The pulse generator was then attached to the leads, making sure that the leads were in appropriate position, passed set screws and set screws were all tightened. Pulse generator was then placed in the pocket, making sure that the leads were lying flat beneath the device. A stay stitch using 0 silk suture was used to secure the device to the pectoralis muscle. Incision was closed in 3-layer fashion using 2-0 Vicryl interrupted suture, followed by 3-0 Vicryl interrupted suture, followed by 4-0 Monocryl stitch and Dermabond was applied. EQUIPMENT: 1. Pulse generator is a [employer] Monon XT DR JESSICA Erazo [id number], serial number [id number]. 2. Right atrial lead Medtronic 5076-52 cm, serial #[id number]. 3. Right ventricular lead Medtronic 5076-58 cm, serial #[id number]. INTRAOPERATIVE TESTIN. Right atrial lead: P-waves 4.2 millivolts, impedance 599 ohms, threshold 1.4 volts at 2.5 milliamps. 2. Right ventricular lead: R-waves 5.9 millivolts, impedance 1303 ohms, threshold 0.6 volts at 0.4 milliamps. FINAL MEASUREMENTS THROUGH THE DEVICE: 1. Right atrial lead: P-waves 2.4 millivolts, impedance 513 ohms, threshold 0.75 volts at 0.4 milliseconds. 2. Right ventricular lead: R-waves 6.9 millivolts, impedance 912 ohms, threshold 0.5 volts at 0.4 milliseconds. FINAL PARAMETERS: MVP-R 60/130. Right ____ amplitude 3.5 volts, pulse width 0.4 milliseconds, sensitivity 0.3 millivolts. Right ____ amplitude 3.5 volts, pulse width 0.4 milliseconds, sensitivity 1.2 millivolts. IMPRESSION: Successful implantation of a dual chamber rate responsive permanent pacemaker under fluoroscopic guidance secondary to intermittent complete heart block. PLAN: Monitor the patient overnight, 12-lead ECG, chest x-ray. He cannot lift the right elbow or the right shoulder for 1 month. He cannot lift more than 10 pounds with the right arm for 2 weeks. He can shower tomorrow, let water run over the incision. He should follow up in our [place] office in 7-10 days for device and wound check. I attest to the content of the Intraoperative Record and any orders documented therein. Any exception s are noted below.
== END 2018-02-04 15:28 | disposition home or self-care (01) | DRG 242 ==
LOC: C.EDB 11:58 → C.MED 13:15 → ENRESERV 13:34 → EDBEDREQ 02-03 01:37 → C.MSICU 02-03 02:20 → C.2E 02-03 16:23
PROVIDERS: ADMIT Internal Medicine; ATTEND Hospitalist
DX: I44.2 Atrioventricular block, complete (principal); I21.A1 Myocardial infarction type 2; C64.2 Malignant neoplasm of left kidney, except renal pelvis; C78.00 Secondary malignant neoplasm of unspecified lung; C79.72 Secondary malignant neoplasm of left adrenal gland; I13.0 Hypertensive heart and chronic kidney disease with heart failure and stage 1 through stage 4 chronic kidney disease, or unspecified chronic kidney disease; I50.22 Chronic systolic (congestive) heart failure; I25.10 Atherosclerotic heart disease of native coronary artery without angina pectoris; I35.0 Nonrheumatic aortic (valve) stenosis; N18.3 Chronic kidney disease, stage 3 (moderate); E03.9 Hypothyroidism, unspecified; E78.5 Hyperlipidemia, unspecified; Z85.841 Personal history of malignant neoplasm of brain; Z92.3 Personal history of irradiation; Z85.528 Personal history of other malignant neoplasm of kidney; Z90.5 Acquired absence of kidney; Z85.46 Personal history of malignant neoplasm of prostate; Z90.79 Acquired absence of other genital organ(s); Z98.890 Other specified postprocedural states; Z79.52 Long term (current) use of systemic steroids; Z79.82 Long term (current) use of aspirin; Z79.899 Other long term (current) drug therapy; Z82.49 Family history of ischemic heart disease and other diseases of the circulatory system

== ENCOUNTER → 2018-04-02 | Outpatient (CLI) | payer OTHER ==
[~2018-04-02] MED LIST changes: +CYAN100020 PO; -CYAN10005 PO; -FERR18TA2 PO; +FRRS300 PO; +LEVO100T PO; -LEVO100T7 PO; -SUNI25CA PO
--- NOTE | 2018-04-02 14:17 | DIAGNOSTIC IMAGING REPORT ---
CT SCAN OF THE ABDOMEN AND PELVIS WITHOUT IV CONTRAST CLINICAL HISTORY: Generalized abdominal pain. COMPARISON STUDY: Abdominal CT dated 05/16/2016. TECHNIQUE: CT scan of the abdomen and pelvis is performed from the lung bases to the proximal femora. Images are reviewed in the axial, sagittal, and coronal planes. IV contrast was not administered for this examination as per the referring clinician. Oral contrast was utilized. Note that the examination is suboptimal without IV contrast. A dose lowering technique was utilized adhering to the principles of ALARA. CT DOSE: 599.13 mGy.cm FINDINGS: Lung bases: The heart is enlarged and without pericardial effusion. Pacemaker leads are noted. There is a small hiatal hernia. There is a 12 mm irregular/lobulated nodule identified in the lingula seen on image #33. An 8 mm nodule is seen in the right lower lobe on image #26. No airspace consolidation or pleural effusion is identified. There is bibasilar scarring/atelectasis. Liver: The unenhanced liver is normal in size, contour, and attenuation. There is no intrahepatic biliary ductal dilatation. Gallbladder: There are numerous calcified gallstones without CT evidence of acute cholecystitis. Spleen: Normal in size and attenuation. Pancreas: The unenhanced pancreas is grossly unremarkable. Adrenal glands: Left adrenal nodules have increased in size as compared to 05/16/2016. The largest is seen on image #123 measures 3.4 cm (previous measuring 2.5 cm). Kidneys: Right kidney is surgically absent. No soft tissue lesion is identified in the right renal fossa. The left kidney demonstrates mild cortical atrophy and is without hydronephrosis. There is a punctate nonobstructing calculus in the left upper pole. A treated lesion is suggested in the posterior interpolar left kidney. There are increasing calcifications within this lesion as compared to the 05/16/2016 examination. Abdominal vasculature: The abdominal aorta is normal in course and caliber noting moderate to advanced atherosclerotic calcification. Bowel: There is advanced sigmoid diverticulosis without CT evidence of acute diverticulitis. No bowel obstruction is seen. The appendix is well-visualized and normal. Peritoneum: There is no intraperitoneal free air or abdominal ascites. There is a fat-containing umbilical hernia. Lymphadenopathy: None. Pelvic viscera: The prostate gland is not identified and presumed surgically absent. The bladder wall appears mildly thickened and trabeculated suggesting the sequelae of chronic outlet obstruction. Skeletal structures: The skeletal structures are osteopenic. There are findings of avascular necrosis in the right femur, with flattening of the femoral head and subchondral collapse. This is new from 2016. Acute subchondral fracture is suspected. No lytic or blastic lesions are seen. IMPRESSION: 1. There are no acute infectious or inflammatory findings in the abdomen or pelvis. 2. There are 2 lower lobe pulmonary nodules measuring up to 12 mm. The lingular nodule has significantly increased in size from 2016 and the right lower lobe nodule is new from previous. Although pathologically indeterminant, given the cancer history these are concerning for metastatic disease. 3. Indeterminant left adrenal nodules have also increased in size from 05/16/2016. 4. There are postoperative changes from right nephrectomy and prostatectomy. 5. A presumably treated lesion is again seen in the posterior interpolar left kidney. This cannot be further assessed without IV contrast. There is increasing calcification within this lesion as compared to previous. 6. There is evidence of avascular necrosis involving the right femur with flattening of the femoral head and possible acute subchondral fracture. 7. Advanced colonic diverticulosis without CT evidence of acute diverticulitis. 8. Cardiomegaly. 9. Additional findings as above. Electronically signed by: Juanjose Ly M.D. 04/02/2018 2:15 PM Dictated Date/Time: 04/02/2018 2:03 PM
== END | disposition home or self-care (01) ==
LOC: C.CTS 11:40
PROVIDERS: ATTEND Internal Medicine Hematology & Oncology
DX: C64.9 Malignant neoplasm of unspecified kidney, except renal pelvis (principal); K59.00 Constipation, unspecified; R14.0 Abdominal distension (gaseous)

== ENCOUNTER 2018-06-16 01:05 | Emergency (ER) | payer OTHER ==
[2018-06-16 01:14] VITALS: BP 0/0; PULSE 0; O2SAT 0
--- NOTE | 2018-06-16 01:16 | EMERGENCY ROOM VISIT NOTE ---
History Report prepared by Neftaliibana paula: Marge Carrasco Under the Supervision of: Dr. Ricco Mazariegos M.D. First contact with patient: 01:08 Chief Complaint: CARDIAC ARREST Stated Complaint: CARDIAC ARREST History of Present Illness The patient is a 78 year old male who presents to the Emergency Room with complaints of an episode of cardiac arrest beginning this evening. History limited secondary to patient's cardiac arrest. EMS reports the patient was experiencing chest pain and had a cardiac arrest. They state they performed BLS for close to 1 hour. EMS notes the patient received 4 rounds of epi, 1 round of amiodarone, was shocked 1 time, and had an IO placed in his leg prior to arrival. They report his glucose was 110. His family reports the patient was experiencing SOB this evening, prompting them to call EMS. They note the patient 's eyes rolled back in his head and he was having agonal respirations before the ambulance arrived. EMS states the patent was pulse-less by the time he entered the ambulance. His family notes the patient had been feeling more ill recently, and experiencing worsening function over the last 3 months. They state there was a possibility he had increased liver enzymes. The family reports the patient had a long history of cardiac disease, including low EF and stenosis of the aortic valve. They report her had a single kidney and deny a history of blood clots. Source of History: family, EMS History Limited By: cardiac arrest Onset: this evening Position: chest Quality: other (cardiac arrest) Timing: other (episode) Note: Associated symptoms: feeling ill recently, worsening function over last 3 months Review of Systems ROS limited secondary to patient's cardiac arrest. Past Medical & Surgical Medical Problems: (1) Aortic stenosis (2) AV block (3) Brain metastasis (4) Chest pain (5) CKD (chronic kidney disease) stage 3, GFR 30-59 ml/min (6) Dyslipidemia (7) History of left heart catheterization (LHC) (8) HTN (hypertension) (9) Hx of malignant neoplasm of prostate (10) Hypothyroidism (11) Metastatic renal cell carcinoma (12) Renal cell carcinoma Surgical Problems: (1) H/O partial nephrectomy (2) H/O transurethral resection of prostate (3) History of nephrectomy Family History FH: cancer (father) Hypertension Social History Smoking Status: Never Smoker Alcohol Use: none Drug Use: none Marital Status: Housing Status: lives with family Occupation Status: retired Current/Historical Medications Scheduled Aspirin (Aspirin Ec), 81 MG PO QAM Cyanocobalamin (Vitamin B12), 1,000 MG PO QAM Ferrous Sulfate (Ferrous Sulfate), 325 MG PO QAM Folic Acid (Folic Acid), 1 TAB PO DAILY Furosemide (Lasix), 20 MG PO QAM Levothyroxine Sodium (Synthroid), 100 MCG PO QAM Prednisone Tab (Prednisone), 10 MG PO DAILY Simvastatin (Zocor), 10 MG PO HS Allergies Coded Allergies: No Known Allergies (Unverified , 02/02/18) Physical Exam Vital Signs Date Time Temp Pulse Resp B/P (MAP) Pulse Ox O2 Delivery O2 Flow Rate FiO2 06/16/18 01:14 0 0 0/0 0 06/16/18 01:10 0 Physical Exam GENERAL: Patient is unresponsive, intubated. EYES: No scleral icterus, pupils fixed. ENT: Mucous membranes moist, no nasal congestion. NECK: Trachea is midline. RESPIRATORY: Crackles bilaterally with bagging CARDIOVASCULAR: No cardiac activity appreciated. GASTROINTESTINAL: Minimal bowel sounds. No pulsatile masses appreciated. BACK: Deferred given cardiac arrest EXTREMITIES: Mottled extremities, mild lower leg edema. No pulses NEUROLOGIC: Unresponsive. GCS 3T. SKIN: Mottled, cool. Medical Decision & Procedures ED Course 0108: The patient was evaluated in room B1. Medical Decision 78 yr old male arrives via EMS in cardiorespiratory arrest. Preceded by breathing difficulty then arrested in front of BLS/Family. He has been in arrest for ~60 min with one episode Vfib and otherwise PEA. Many rounds epi along with amio and continued CPR and intubation. No pulses, no electrical activity, no cardiac movement on EKG, no neurological response. At this point further intervention futile. I discussed this with family and they agree. They were brought in to room at which point I had CPR held and thus declared at 1:10am. I discussed every this with family and questions were answered. With his history suspect this was cardiac in origin (either acute CHF or ACS), though PE a possibility. Head Trauma GCS Score: 3 Medication Reconcilliation Current Medication List: was personally reviewed by me Impression Primary Impression: Cardiac arrest Scribe Attestation The scribe's documentation has been prepared under my direction and personally reviewed by me in its entirety. I confirm that the note above accurately reflects all work, treatment, procedures, and medical decision making performed by me. Departure Information Dispostion Referrals Polina Aguilera D.O. (PCP) Patient Instructions [facility]
== END 2018-06-16 01:10 | disposition expired ==
LOC: EDBD 01:05 → C.EDB 01:07
DX: I46.9 Cardiac arrest, cause unspecified (principal); R40.2432 Glasgow coma scale score 3-8, at arrival to emergency department; N18.3 Chronic kidney disease, stage 3 (moderate); I12.9 Hypertensive chronic kidney disease with stage 1 through stage 4 chronic kidney disease, or unspecified chronic kidney disease; E03.9 Hypothyroidism, unspecified; Z90.5 Acquired absence of kidney; Z79.82 Long term (current) use of aspirin; Z79.52 Long term (current) use of systemic steroids; Z79.899 Other long term (current) drug therapy; Z82.49 Family history of ischemic heart disease and other diseases of the circulatory system